=== PATIENT | female | born 1940 | race Caucasian/White ===

== ENCOUNTER 2019-07-20 16:10 | Inpatient (IN) | payer MEDICARE ==
--- NOTE | 2019-07-20 16:32 | ER Document Report ---
ED Medical Screen (RME) - General Chief Complaint: Cough Stated Complaint: SHORT OF BREATH, COUGH Time Seen by Provider: 07/20/19 16:26 Primary Care Provider: MARIZA MOHAMUD MD [Primary Care Provider] - Follow up as needed Mode of Arrival: Wheelchair Information source: Patient Notes: 78-year-old female presents to ED for complaint of shortness of breath cough congestion. She was sent over by the primary doctor with possible pneumonia. She does have a history of bronchitis in the winter but has never had COPD or asthma. She has had a history of pneumonia in the past. She states she thinks she was having a fever last night off and on. O2 sat was 87% on room air. She is now on 3 L and satting at 91-92% pulse is at 109-120. Blood pressure is 162/72. Lungs very coarse with rales rhonchi throughout I have greeted and performed a rapid initial assessment of this patient. A comprehensive ED assessment and evaluation of the patient, analysis of test results and completion of medical decision making process will be conducted by an additional ED providers. TRAVEL OUTSIDE OF THE [place] IN LAST 30 DAYS: No Physical Exam - Vital signs Vitals: Temp Pulse Resp BP Pulse Ox 98.2 F 124 H 36 H 129/106 H 87 L 07/20/19 16:19 07/20/19 16:19 07/20/19 16:19 07/20/19 16:19 07/20/19 16:19 Course - Vital Signs Vital signs: Temp Pulse Resp BP Pulse Ox 98.2 F 124 H 36 H 129/106 H 87 L 07/20/19 16:19 07/20/19 16:19 07/20/19 16:19 07/20/19 16:19 07/20/19 16:19 Doctor's Discharge - Discharge Referrals: MARIZA MOHAMUD MD [Primary Care Provider] - Follow up as needed
[2019-07-20] MEDS ORDERED: NORMAL SALINE 1000 ML 1,000 ML IV ONE (16:35)
--- NOTE | 2019-07-20 16:35 | ER Document Report ---
ED Medical Screen (RME) - General Chief Complaint: Cough Stated Complaint: SHORT OF BREATH, COUGH Time Seen by Provider: 07/20/19 16:26 Primary Care Provider: MARIZA MOHAMUD MD [Primary Care Provider] - Follow up as needed Mode of Arrival: Wheelchair Information source: Patient Notes: Patient is a former smoker quit couple years ago. Was treated for ovarian ca ncer 2 years ago she was diagnosed finished chemo in July a year ago TRAVEL OUTSIDE OF THE [place] IN LAST 30 DAYS: No Physical Exam - Vital signs Vitals: Temp Pulse Resp BP Pulse Ox 98.2 F 124 H 36 H 129/106 H 87 L 07/20/19 16:19 07/20/19 16:19 07/20/19 16:19 07/20/19 16:19 07/20/19 16:19 Course - Vital Signs Vital signs: Temp Pulse Resp BP Pulse Ox 98.2 F 124 H 36 H 129/106 H 87 L 07/20/19 16:19 07/20/19 16:19 07/20/19 16:19 07/20/19 16:19 07/20/19 16:19 Doctor's Discharge - Discharge Referrals: MARIZA MOHAMUD MD [Primary Care Provider] - Follow up as needed
--- NOTE | 2019-07-20 17:10 | RADIOLOGY REPORT (SQ) ---
EXAM DESCRIPTION: CHEST 2 VIEWS COMPLETED DATE/TIME: 07/20/2019 5:02 pm REASON FOR STUDY: cough congestion COMPARISON: None. EXAM PARAMETERS: NUMBER OF VIEWS: two views TECHNIQUE: Digital Frontal and Lateral radiographic views of the chest acquired. RADIATION DOSE: NA LIMITATIONS: none FINDINGS: LUNGS AND PLEURA: No opacities, masses or pneumothorax. No pleural effusion. MEDIASTINUM AND HILAR STRUCTURES: No masses or contour abnormalities. HEART AND VASCULAR STRUCTURES: Heart normal size. No evidence for failure. BONES: No acute findings. Degenerative changes in the spine. HARDWARE: None in the chest. Hardware in the right shoulder. OTHER: No other significant finding. IMPRESSION: NO ACUTE RADIOGRAPHIC FINDING IN THE CHEST. TECHNICAL DOCUMENTATION: JOB ID: [id number] [employer]- All Rights Reserved Reading location - IP/workstation name: [email or web address]
[2019-07-20 17:28] LABS: VENOUS BLOOD HCO3 24.7 mmol/L (20-32); VENOUS BLOOD PCO2 49.5 mmHg (35-63); VENOUS BLOOD PH 7.32 (7.30-7.42)
[2019-07-20 17:33] LABS: ABSOLUTE BASOPHILS # (AUTO) 0.1 10^3/uL (0.0-0.2); ABSOLUTE LYMPHOCYTES (AUTO) 1.7 10^3/uL (0.5-4.7); ABSOLUTE MONOCYTES (AUTO) 1.3 10^3/uL (0.1-1.4); ABSOLUTE NEUT (AUTO) 10.9 10^3/uL (1.7-8.2); BASOPHILS % (AUTO) 0.4 % (0-2); EOSINOPHILS % (AUTO) 0.2 % (0-6); HEMATOCRIT 42.1 % (36.0-47.0); HEMOGLOBIN 14.6 g/dL (12.0-15.5); LYMPHOCYTES % (AUTO) 12.5 % (13-45); MEAN CORPUSCULAR HEMOGLOBIN 33.2 pg (27.0-33.4); MEAN CORPUSCULAR HGB CONC 34.6 g/dL (32.0-36.0); MEAN CORPUSCULAR VOLUME 96 fl (80-97); PLATELET COUNT 198 10^3/uL (150-450); RED BLOOD COUNT 4.39 10^6/uL (3.72-5.28); RED CELL DISTRIBUTION WIDTH 14.3 % (11.5-14.0); SEGMENTED NEUTROPHILS % (AUTO) 77.9 % (42-78); TOTAL CELLS COUNTED % (AUTO) 100 %
[2019-07-20 17:38] LABS: INTERNATIONAL RATION (INR) 1.04; PROTHROMBIN TIME 13.6 SEC (11.4-15.4)
[2019-07-20 17:49] LABS: ALBUMIN 4.5 g/dL (3.5-5.0); ALKALINE PHOSPHATASE 94 U/L (38-126); ANION GAP 12 (5-19); ASPARTATE AMINO TRANSFERASE 39 U/L (14-36); BILIRUBIN,DIRECT 0.2 mg/dL (0.0-0.4); BILIRUBIN,TOTAL 0.8 mg/dL (0.2-1.3); BLOOD UREA NITROGEN 29 mg/dL (7-20); CALCIUM 9.9 mg/dL (8.4-10.2); CARBON DIOXIDE 27 mmol/L (22-30); CHLORIDE 97 mmol/L (98-107); GLUCOSE 127 mg/dL (75-110); POTASSIUM 5.1 mmol/L (3.6-5.0); TOTAL PROTEIN 8.2 g/dL (6.3-8.2)
[2019-07-20 19:20] LABS: NT PRO BNP 444 pg/mL (<450)
[2019-07-20 19:23] LABS: TROPONIN I < 0.012 ng/mL
--- NOTE | 2019-07-20 19:44 | RADIOLOGY REPORT (SQ) ---
EXAM DESCRIPTION: CTA CHEST COMPLETED DATE/TIME: 07/20/2019 7:29 pm REASON FOR STUDY: cancer/dyspnea COMPARISON: None. TECHNIQUE: CT scan of the chest performed using helical scanning technique with dynamic intravenous contrast injection. Images reviewed with lung, soft tissue and bone windows. Reconstructed coronal and sagittal MPR images reviewed. Additional 3 dimensional post-processing performed to develop Maximal Intensity Projection images (PR P). All images stored on PACS. All CT scanners at this facility use dose modulation, iterative reconstruction, and/or weight based d osing when appropriate to reduce radiation dose to as low as reasonably achievable (ALARA). [facility]: Dose Right [facility]: CareDose [facility]: Dose Right [facility]: Teradose 4D [facility]: BioMax CONTRAST TYPE AND DOSE: contrast/concentration: Isovue 300.00 mg/ml; Total Contrast Delivered: 70.0 ml; Total Saline Delivered: 80.0 ml Contrast bolus adequate for pulmonary arteries and aorta. RENAL FUNCTION: BUN 29 creatinine 1.89 RADIATION DOSE: CT Rad equipment meets quality standard of care and radiation dose reduction techniq ues were employed. CTDIvol: 6.6 - 16.6 mGy. DLP: 630 mGy-cm. . LIMITATIONS: Mild pulsation artifact. FINDINGS: LUNGS AND PLEURA: No masses, infiltrates, or pneumothorax. No pleural effusions or pleura l calcifications. AORTA AND GREAT VESSELS: No aneurysm. No dissection. HEART: No pericardial effusion. No significant coronary artery calcifications. PULMONARY ARTERIES: No emboli visualized in the main pulmonary arteries or the segmental branches. HILAR AND MEDIASTINAL STRUCTURES: There are numerous small nonspecific mediastinal nodes. HARDWARE: None in the chest. UPPER ABDOMEN: Hypoattenuation of the liver. THYROID AND OTHER SOFT TISSUES: No masses. No adenopathy. BONES: No acute or significant finding. 3D MIPS: Confirm above findings. OTHER: No other significant finding. IMPRESSION: 1. There is no pulmonary embolus. There is no aortic aneurysm or dissection. 2. Hepatic steatosis. COMMENT: Quality ID # [id number]: Final reports with documentation of one or more dose reduction techniques (e.g., Automated exposure control, adjustment of the mA and/or kV according to patient size, use of iterative reconstruction technique) TECHNICAL DOCUMENTATION: JOB ID: [id number] [employer]- All Rights Reserved Reading location - IP/workstation name: [email or web address]
--- NOTE | 2019-07-20 20:02 | ER Document Report ---
ED General - General Chief Complaint: Shortness Of Breath Stated Complaint: SHORT OF BREATH, COUGH Time Seen by Provider: 07/20/19 16:26 Primary Care Provider: MARIZA MOHAMUD MD [ACTIVE STAFF] - Follow up as needed Mode of Arrival: Wheelchair Information source: Patient TRAVEL OUTSIDE OF THE [place] IN LAST 30 DAYS: No - HPI Notes: Patient presents with shortness of breath. She states is been gradually getting worse over the last week. She states that she went to her primary care doctor's office today and they referred her to the emergency department. She has been using her inhaler that she uses as needed but with no relief. She states she does have COPD. She was a smoker up until about 2 years ago. She also states that she underwent chemotherapy for ovarian cancer and that this has caused her to have a poor immune system. She states her last dose of chemo was approximate 1 year ago. She states she has had a dry cough essentially. With some generalized body aches. The body aches are mild to moderate. They are constant. They are worse with movement and better with rest. Her shortness of breath is also worse with exertion. There is no radiation of the symptoms. No vomiting or diarrhea. No fevers or rashes. She has no history of congestive heart failure. - Related Data Allergies/Adverse Reactions: glycopeptides ('-mycins') Allergy (Uncoded 07/20/19 19:01) Past Medical History - General Information source: Patient - Social History Smoking Status: Former Smoker Frequency of alcohol use: None Drug Abuse: None Family History: Reviewed & Not Pertinent Patient has suicidal ideation: No Patient has homicidal ideation: No - Past Medical History Cardiac Medical History: Reports: Hx Hypertension Past Surgical History: Reports: Hx Hysterectomy, Hx Kidney (Renal Surgery) - removal, Hx Orthopedic Surgery - rt rotator cuff, lt ankle Review of Systems - Review of Systems Constitutional: Chills, Malaise, Weakness Respiratory: Cough, Short of breath Gastrointestinal: denies: Diarrhea, Vomiting -: Yes All other systems reviewed and negative Physical Exam - Vital signs Vitals: Temp Pulse Resp BP Pulse Ox 98.2 F 124 H 36 H 129/106 H 87 L 07/20/19 16:19 07/20/19 16:19 07/20/19 16:19 07/20/19 16:19 07/20/19 16:19 Interpretation: Hypertensive, Tachycardic, Tachypneic - General General appearance: Alert In distress: Mild - Respiratory - HEENT Head: Normocephalic, Atraumatic Eyes: Normal Pupils: PERRL - Respiratory Respiratory status: Tachypnea, Other - Mild respiratory distress with tachypnea Chest status: Nontender Breath sounds: Rhonchi - Rhonchi diffuse Chest palpation: Normal - Cardiovascular Rhythm: Tachycardia Heart sounds: Normal auscultation Murmur: No - Abdominal Inspection: Normal Distension: No distension Bowel sounds: Normal Tenderness: Nontender Organomegaly: No organomegaly - Back Back: Normal, Nontender - Extremities General upper extremity: Normal inspection, Nontender, Normal color, Normal ROM, Normal temperature General lower extremity: Normal inspection, Nontender, Normal color, Normal ROM, Normal temperature, Normal weight bearing. No: Fabian's sign - Neurological Neuro grossly intact: Yes Cognition: Normal Orientation: AAOx4 Ailyn Coma Scale Eye Opening: Spontaneous [place] Coma Scale Verbal: Oriented Ailyn Coma Scale Motor: Obeys Commands Ailyn Coma Scale Total: 15 Speech: Normal Motor strength normal: LUE, RUE, LLE, RLE Sensory: Normal - Psychological Associated symptoms: Normal affect, Normal mood - Skin Skin Temperature: Warm Skin Moisture: Dry Skin Color: Normal Course - Re-evaluation Re-evalutation: 07/20/19 20:03 Patient presents with dyspnea on exertion. She has rhonchi in all kothari. She is tachypneic and tachycardic. She received several treatments before arrival they gave her some relief. I did not give the patient any more nebulized treatments here as she was tachycardic and tachypneic at baseline here in the emergency department. I will give the patient steroids and antibiotics. There is no evidence of pulmonary embolism or pneumonia. She seems to have an exace rbation of her COPD. There is no evidence of heart failure. - Vital Signs Vital signs: Temp Pulse Resp BP Pulse Ox 98.2 F 124 H 29 H 185/104 H 92 07/20/19 16:19 07/20/19 16:19 07/20/19 19:14 07/20/19 19:14 07/20/19 19:14 - Laboratory Result Diagrams: 07/20/19 17:17 07/20/19 17:17 Laboratory results interpreted by me: 07/20/19 07/20/19 07/20/19 17:17 17:17 17:46 WBC 14.0 H RDW 14.3 H Lymph % (Auto) 12.5 L Absolute Neuts (auto) 10.9 H Sodium 136.1 L Potassium 5.1 H Chloride 97 L BUN 29 H Creatinine 1.89 H Est GFR ( Amer) 31 L Est GFR (MDRD) Non-Af 26 L Glucose 127 H POC Glucose 116 H AST 39 H - Diagnostic Test Radiology reviewed: Image reviewed, Reports reviewed - EKG Interpretation by Me EKG shows normal: Sinus rhythm Rate: Tachycardia - 116 Rhythm: NSR Wana/QRS: No: Right axis deviation, Left axis deviation Discharge - Discharge Clinical Impression: COPD with acute exacerbation Condition: Stable Disposition: ADMITTED INPATIENT Admitting Provider: Alonzo (Hospitalist) Unit Admitted: Telemetry
[2019-07-20] MEDS ORDERED: AZITHROMYCIN 250 MG TABLET PO ONE (20:07)
[2019-07-20] MEDS ORDERED: CEFTRIAXONE 2 GM/D5W RTU 2 GM/50 ML RTUPB IV ONE (20:07)
[2019-07-20] MEDS ORDERED: METHYLPREDNISOLONE INJ 125 MG/2 ML SDV IV ONE (20:07)
[2019-07-20] MEDS ORDERED: IPRATROPIUM/ALBUTEROL 0.5-2.5 MG/3 ML AMPUL NEB PRN (20:07)
[2019-07-20 20:39] LABS: APPEARANCE,URINE CLOUDY; BILIRUBIN,URINE NEGATIVE (NEGATIVE); COLOR,URINE YELLOW; GLUCOSE, URINE NEGATIVE (NEGATIVE); KETONES,URINE NEGATIVE (NEGATIVE); PROTEIN,URINE 30 mg/dL (NEGATIVE); URINE SPECIFIC GRAVITY 1.026; UROBILINOGEN,URINE NEGATIVE mg/dL (<2.0)
[2019-07-20] MEDS: DILTIAZEM HCL 60 MG TABLET PO SCH (20:41)
[2019-07-20] MEDS ORDERED: AZITHROMYCIN 500 MG in DEXTROSE 5%-WATER 250 ML IV SCH (22:00)
[2019-07-20] MEDS: PREDNISONE 20 MG TABLET PO SCH (22:08)
[2019-07-20] MEDS: HEPARIN SOD (PORCINE) 5,000 UNIT/ML 1 ML VIAL SUBCUT SCH (22:13)
[2019-07-20] MEDS ORDERED: HYDRALAZINE HCL INJ/PF 20 MG/1 ML SDV IV PRN (22:16)
[2019-07-20] MEDS ORDERED: ALPRAZOLAM 0.5 MG TABLET PO ONE (22:45)
[2019-07-20] MEDS ORDERED: PREDNISONE 20 MG TABLET PO ONE (22:45)
[2019-07-20] MEDS ORDERED: METOPROLOL SUCCINATE 50 MG TAB.SR.24H PO ONE (22:45)
[2019-07-20] MEDS ORDERED: AZITHROMYCIN 500 MG in DEXTROSE 5%-WATER 250 ML IV ONE (23:00)
--- NOTE | 2019-07-20 23:46 | EKG REPORT ---
SEVERITY:- ABNORMAL ECG - SINUS TACHYCARDIA MULTIPLE ATRIAL PREMATURE COMPLEXES ABNORMAL T, CONSIDER ISCHEMIA, LATERAL LEADS : Confirmed by: Zachary Mansfield 20-Jul-2019 23:46:24
[2019-07-20] MEDS: CHLORPHENIRAMINE MALEATE 4 MG TABLET PO SCH (23:55)
[2019-07-21] MEDS: IPRATROPIUM/ALBUTEROL 0.5-2.5 MG/3 ML AMPUL NEB SCH ×3 (00:15→17:34)
[2019-07-21] MEDS ORDERED: NORMAL SALINE 1000 ML 1,000 ML IV PRN (04:30)
--- NOTE | 2019-07-21 04:32 | PDOC H&P ---
History of Present Illness Admission Date/PCP: 07/20/19 20:22 JOSE BANDA PA-C Patient complains of: Shortness of breath History of Present Illness: TREVOR ABBOTT is a 78 year old female with a remote past medical history of hypertension, COPD with chronic bronchitis, and ovarian cancer status post successful chemotherapy. She presents with approximately 1 week of rhinorrhea, sore throat, shortness of breath, nonproductive cough and wheeze. In the emergency room she has tachypnea, audible wheezing, tachypnea, hypoxia, leukocytosis, acute renal failure and a urinalysis suggestive of urinary tract infection. She is started on empiric antibiotics, albuterol Atrovent, Solu- Medrol and referred to the hospitalist for admission. Patient denies recent antibiotic use and is otherwise felt fairly well. Past Medical History Cardiac Medical History: Reports: Hypertension Pulmonary Medical History: Reports: Bronchitis, Chronic Obstructive Pulmonary Disease (COPD) Psychiatric Medical History: Reports: Tobacco Dependency Denies: Alcohol Dependency Past Surgical History Past Surgical History: Reports: Hysterectomy, Orthopedic Surgery - rt rotator cuff, lt ankle Social History Information Source: Patient Lives with: Family Smoking Status: Former Smoker Electronic Cigarette use?: No Number of Years Smokin Last Time Smoked: 07/20/2016 Frequency of Alcohol Use: Occasional Hx Recreational Drug Use: No Drugs: None Hx Prescription Drug Abuse: No - Advance Directive Resuscitation Status: Full Code Family History Family History: COPD, DM Parental Family History Reviewed: Yes Children Family History Reviewed: Yes Sibling(s) Family History Reviewed.: Yes Medication/Allergy Home Medications: Albuterol Sulfate [Proair HFA Inhalation Aerosol 8.5 gm MDI] 2 puff IH Q6HP PRN 07/20/19 Alprazolam [Xanax 0.5 mg Tablet] 0.5 mg PO Q12 07/20/19 Clonidine HCl [Catapres 0.1 mg Tablet] 0.1 mg PO QHS 07/20/19 Fexofenadine HCl [Darlene Allergy] 180 mg PO BID 07/20/19 Metoprolol Succinate [Toprol Xl 50 mg Tab.sr] 50 mg PO Q12 07/20/19 Oxybutynin Chloride [Ditropan 5 mg Tablet] 5 mg PO BID 07/20/19 Allergies/Adverse Reactions: glycopeptides ('-mycins') Allergy (Uncoded 07/20/19 19:01) Review of Systems Constitutional: ABSENT: chills, fever(s), headache(s), weight gain, weight loss Eyes: ABSENT: visual disturbances Ears: ABSENT: hearing changes Cardiovascular: ABSENT: chest pain, dyspnea on exertion, edema, orthropnea, palpitations Respiratory: PRESENT: as per HPI, cough, dyspnea. ABSENT: hemoptysis, sputum Gastrointestinal: PRESENT: bloating, constipation. ABSENT: abdominal pain, diarrhea, hematemesis, hematochezia, nausea, vomiting Genitourinary: ABSENT: dysuria, hematuria Musculoskeletal: ABSENT: joint swelling Integumentary: ABSENT: rash, wounds Neurological: ABSENT: abnormal gait, abnormal speech, confusion, dizziness, focal weakness, syncope Psychiatric: ABSENT: anxiety, depression, homidical ideation, suicidal ideation Endocrine: ABSENT: cold intolerance, heat intolerance, polydipsia, polyuria Hematologic/Lymphatic: ABSENT: easy bleeding, easy bruising Physical Exam Vital Signs: Temp Pulse Resp BP Pulse Ox 98.0 F 93 18 153/76 H 95 07/20/19 22:35 07/21/19 02:00 07/21/19 00:15 07/20/19 22:35 07/21/19 00:15 Intake & Output 07/19/19 07/20/19 07/21/19 11:59 11:59 11:59 Intake Total 1300 Balance 1300 Weight 80.286 kg General appearance: PRESENT: cooperative, mild distress, obese, well-developed, well-nourished Head exam: PRESENT: atraumatic, normocephalic Eye exam: PRESENT: conjunctiva pink, EOMI, PERRLA. ABSENT: scleral icterus Ear exam: PRESENT: normal external ear exam Mouth exam: PRESENT: moist, tongue midline Neck exam: ABSENT: carotid bruit, JVD, lymphadenopathy, thyromegaly Respiratory exam: PRESENT: accessory muscle use, crackles, decreased breath sounds, rales, rhonchi, symmetrical, tachypnea, wheezes Cardiovascular exam: PRESENT: RRR, tachycardia. ABSENT: diastolic murmur, rubs, systolic murmur Pulses: PRESENT: normal dorsalis pedis pul Vascular exam: PRESENT: normal capillary refill GI/Abdominal exam: PRESENT: normal bowel sounds, soft. ABSENT: distended, guarding, mass, organolmegaly, rebound, tenderness Rectal exam: PRESENT: deferred Extremities exam: PRESENT: full ROM. ABSENT: calf tenderness, clubbing, pedal edema Neurological exam: PRESENT: alert, awake, oriented to person, oriented to place, oriented to time, oriented to situation, CN II-XII grossly intact. ABSENT: motor sensory deficit Psychiatric exam: PRESENT: appropriate affect, normal mood. ABSENT: homicidal ideation, suicidal ideation Skin exam: PRESENT: dry, intact, warm. ABSENT: cyanosis, rash Results Laboratory Results: 07/20/19 17:17 07/20/19 17:17 07/20/19 07/20/19 07/20/19 17:17 17:17 17:17 WBC 14.0 H RBC 4.39 Hgb 14.6 Hct 42.1 MCV 96 MCH 33.2 MCHC 34.6 RDW 14.3 H Plt Count 198 Seg Neutrophils % 77.9 VBG pH 7.32 VBG pCO2 49.5 VBG HCO3 24.7 VBG Base Excess -2.0 Sodium 136.1 L Potassium 5.1 H Chloride 97 L Carbon Dioxide 27 Anion Gap 12 BUN 29 H Creatinine 1.89 H Est GFR ( Amer) 31 L Glucose 127 H Calcium 9.9 Total Bilirubin 0.8 AST 39 H Alkaline Phosphatase 94 Total Protein 8.2 Albumin 4.5 Urine Color Urine Appearance Urine pH Ur Specific [place] Urine Protein Urine Glucose (UA) Urine Ketones Urine Blood Urine RBC (Auto) 07/20/19 20:18 WBC RBC Hgb Hct MCV MCH MCHC RDW Plt Count Seg Neutrophils % VBG pH VBG pCO2 VBG HCO3 VBG Base Excess Sodium Potassium Chloride Carbon Dioxide Anion Gap BUN Creatinine Est GFR ( Amer) Glucose Calcium Total Bilirubin AST Alkaline Phosphatase Total Protein Albumin Urine Color YELLOW Urine Appearance CLOUDY Urine pH 5.0 Ur Specific [place] 1.026 Urine Protein 30 H Urine Glucose (UA) NEGATIVE Urine Ketones NEGATIVE Urine Blood SMALL H Urine RBC (Auto) 6 07/20/19 17:17 Troponin I < 0.012 NT-Pro-B Natriuret Pep 444 Impressions: Chest X-Ray 07/20/19 16:32 IMPRESSION: NO ACUTE RADIOGRAPHIC FINDING IN THE CHEST. Chest/Abdomen CTA 07/20/19 18:42 IMPRESSION: 1. There is no pulmonary embolus. There is no aortic aneurysm or dissection. 2. Hepatic steatosis. Assessment and Plan - Diagnosis (1) Pneumonia Is this a current diagnosis for this admission?: Yes Plan: Secondary to sinusitis, acute flare of chronic bronchitis, empiric antibiotics initiated, follow-up blood culture and CBC. (2) Sinusitis Is this a current diagnosis for this admission?: Yes Plan: Flonase and chlorpheniramine (3) COPD with acute exacerbation Is this a current diagnosis for this admission?: Yes Plan: Secondary to #1, prednisone, incentive spirometry, flutter valve, supplemental oxygen (4) UTI (urinary tract infection) Is this a current diagnosis for this admission?: Yes Plan: Empiric antibiotics initiated, follow-up urine culture and CBC (5) Acute renal failure Is this a current diagnosis for this admission?: Yes Plan: Somewhat prerenal, avoid nephrotoxic meds and doses, IV fluid challenge, follow- up chemistry - Time Time Spent with patient: 25-34 minutes - Inpatient Certification Medical Necessity: Need Close Monitoring Due to Risk of Patient Decompensation
[2019-07-21 05:28] LABS: ABSOLUTE LYMPHOCYTES (AUTO) 0.7 10^3/uL (0.5-4.7); ABSOLUTE MONOCYTES (AUTO) 0.2 10^3/uL (0.1-1.4); ABSOLUTE NEUT (AUTO) 9.8 10^3/uL (1.7-8.2); HEMATOCRIT 38.5 % (36.0-47.0); HEMOGLOBIN 13.1 g/dL (12.0-15.5); LYMPHOCYTES % (AUTO) 6.7 % (13-45); MEAN CORPUSCULAR HEMOGLOBIN 32.7 pg (27.0-33.4); MEAN CORPUSCULAR HGB CONC 34.1 g/dL (32.0-36.0); MEAN CORPUSCULAR VOLUME 96 fl (80-97); MONOCYTES % (AUTO) 1.7 % (3-13); PLATELET COUNT 171 10^3/uL (150-450); RED BLOOD COUNT 4.02 10^6/uL (3.72-5.28); RED CELL DISTRIBUTION WIDTH 14.1 % (11.5-14.0); SEGMENTED NEUTROPHILS % (AUTO) 91.6 % (42-78); TOTAL CELLS COUNTED % (AUTO) 100 %; WHITE BLOOD COUNT 10.7 10^3/uL (4.0-10.5)
[2019-07-21] MEDS: CHLORPHENIRAMINE MALEATE 4 MG TABLET PO SCH ×3 (05:38→17:50)
[2019-07-21] MEDS: DILTIAZEM HCL 60 MG TABLET PO SCH ×3 (05:38→17:50)
[2019-07-21] MEDS: HEPARIN SOD (PORCINE) 5,000 UNIT/ML 1 ML VIAL SUBCUT SCH ×3 (05:39→21:15)
[2019-07-21 05:47] LABS: ALBUMIN 3.7 g/dL (3.5-5.0); ALKALINE PHOSPHATASE 88 U/L (38-126); ANION GAP 12 (5-19); ASPARTATE AMINO TRANSFERASE 31 U/L (14-36); BILIRUBIN,DIRECT 0.2 mg/dL (0.0-0.4); BILIRUBIN,TOTAL 0.4 mg/dL (0.2-1.3); BLOOD UREA NITROGEN 24 mg/dL (7-20); CARBON DIOXIDE 22 mmol/L (22-30); CHLORIDE 101 mmol/L (98-107); GLUCOSE 219 mg/dL (75-110); POTASSIUM 4.5 mmol/L (3.6-5.0); TOTAL PROTEIN 6.6 g/dL (6.3-8.2)
[2019-07-21] MEDS: ALPRAZOLAM 0.5 MG TABLET PO SCH ×2 (11:01→21:17)
[2019-07-21] MEDS: METOPROLOL SUCCINATE 50 MG TAB.SR.24H PO SCH ×2 (11:01→21:17)
[2019-07-21] MEDS: PREDNISONE 20 MG TABLET PO SCH (11:02)
[2019-07-21] MEDS: FLUTICASONE NASAL SPRAY 50 MCG/SPRY 120 SPRAY/16 GM NASL SCH ×3 (11:02→21:15)
[2019-07-21] MEDS: GUAIFENESIN 600 MG TABLET.SA PO SCH ×2 (12:00→21:17)
--- NOTE | 2019-07-21 12:07 | RADIOLOGY REPORT (SQ) ---
EXAM DESCRIPTION: CHEST SINGLE VIEW COMPLETED DATE/TIME: 07/21/2019 11:52 am REASON FOR STUDY: worsened hypoxia, dyspnea COMPARISON: 07/20/2019 EXAM PARAMETERS: NUMBER OF VIEWS: One view. TECHNIQUE: Single frontal radiographic view of the chest acquired. RADIATION DOSE: NA LIMITATIONS: None. FINDINGS: LUNGS AND PLEURA: No opacities, masses or pneumothorax. No pleural effusion. MEDIASTINUM AND HILAR STRUCTURES: No masses. Contour normal. HEART AND VASCULAR STRUCTURES: Normal heart size. Aortic atherosclerosis. BONES: No acute findings. Surgical ankle no proximal right humerus. HARDWARE: None in the chest. OTHER: No other significant finding. IMPRESSION: NO ACUTE RADIOGRAPHIC FINDING IN THE CHEST. TECHNICAL DOCUMENTATION: JOB ID: [id number] [employer]- All Rights Reserved Reading location - IP/workstation name: [email or web address]
[2019-07-21] MEDS: METHYLPREDNISOLONE INJ 40 MG/1 ML SDV IV SCH ×2 (15:00→21:19)
--- NOTE | 2019-07-21 17:15 | PDOC PROGRESS REPORT ---
Subjective Progress Note for:: 07/21/19 Subjective:: TREVOR ABBOTT is a 78 year old female with a remote past medical history of hypertension, COPD with chronic bronchitis, and ovarian cancer status post successful chemotherapy admitted 07/20/2019 for pneumonia, COPD with acute exacerbation, and UTI. Patient was seen on morning rounds and again briefly this afternoon. She was found to be resting in bed comfortably on supplemental oxygen via nasal cannula at 4 L/min. She is not home O2 dependent. I did turn off her oxygen and monitor her SPO2; she did desaturate to the mid 80s. She continues to have shortness of breath while at rest, and a productive cough, audible wheezing and rhonchi. She does admit to feeling much better today. She denies fever, chills, chest pain, palpitations, orthopnea, abdominal pain, nausea vomiting or diarrhea. She has good appetite. She has no new questions or concerns. No concerns per nursing. Reason For Visit: PNEUMONIA Physical Exam Vital Signs: Temp Pulse Resp BP Pulse Ox 97.9 F 80 18 153/55 H 97 07/21/19 15:31 07/21/19 15:31 07/21/19 15:31 07/21/19 15:31 07/21/19 15:31 Intake & Output 07/20/19 07/21/19 07/22/19 06:59 06:59 06:59 Intake Total 1300 320 Balance 1300 320 Weight 80.286 kg General appearance: PRESENT: no acute distress, cooperative, well-developed, well-nourished - Overweight Head exam: PRESENT: atraumatic, normocephalic Eye exam: PRESENT: conjunctiva pink, EOMI, PERRLA. ABSENT: scleral icterus Ear exam: PRESENT: normal external ear exam Mouth exam: PRESENT: moist, tongue midline Neck exam: ABSENT: carotid bruit, JVD, lymphadenopathy, thyromegaly Respiratory exam: PRESENT: rhonchi, symmetrical, unlabored, wheezes, other - Supplemental oxygen via nasal cannula. ABSENT: rales Cardiovascular exam: PRESENT: RRR, +S1, +S2. ABSENT: diastolic murmur, rubs, systolic murmur Pulses: PRESENT: normal dorsalis pedis pul Vascular exam: PRESENT: normal capillary refill GI/Abdominal exam: PRESENT: normal bowel sounds, soft. ABSENT: distended, guarding, mass, organolmegaly, rebound, tenderness Rectal exam: PRESENT: deferred Extremities exam: PRESENT: full ROM. ABSENT: calf tenderness, clubbing, pedal edema Neurological exam: PRESENT: alert, awake, oriented to person, oriented to place, oriented to time, oriented to situation, CN II-XII grossly intact. ABSENT: motor sensory deficit Psychiatric exam: PRESENT: appropriate affect, normal mood. ABSENT: homicidal ideation, suicidal ideation Skin exam: PRESENT: dry, intact, warm. ABSENT: cyanosis, rash Results Laboratory Results: 07/21/19 04:53 07/21/19 04:53 07/20/19 07/20/19 07/20/19 17:17 17:17 17:17 WBC 14.0 H RBC 4.39 Hgb 14.6 Hct 42.1 MCV 96 MCH 33.2 MCHC 34.6 RDW 14.3 H Plt Count 198 Seg Neutrophils % 77.9 VBG pH 7.32 VBG pCO2 49.5 VBG HCO3 24.7 VBG Base Excess -2.0 Sodium 136.1 L Potassium 5.1 H Chloride 97 L Carbon Dioxide 27 Anion Gap 12 BUN 29 H Creatinine 1.89 H Est GFR ( Amer) 31 L Glucose 127 H Calcium 9.9 Total Bilirubin 0.8 AST 39 H Alkaline Phosphatase 94 Total Protein 8.2 Albumin 4.5 Urine Color Urine Appearance Urine pH Ur Specific [place] Urine Protein Urine Glucose (UA) Urine Ketones Urine Blood Urine RBC (Auto) 07/20/19 07/21/19 07/21/19 20:18 04:53 04:53 WBC 10.7 H RBC 4.02 Hgb 13.1 Hct 38.5 MCV 96 MCH 32.7 MCHC 34.1 RDW 14.1 H Plt Count 171 Seg Neutrophils % 91.6 H VBG pH VBG pCO2 VBG HCO3 VBG Base Excess Sodium 135.0 L Potassium 4.5 Chloride 101 Carbon Dioxide 22 Anion Gap 12 BUN 24 H Creatinine 1.35 H Est GFR ( Amer) 46 L Glucose 219 H Calcium 9.0 Total Bilirubin 0.4 AST 31 Alkaline Phosphatase 88 Total Protein 6.6 Albumin 3.7 Urine Color YELLOW Urine Appearance CLOUDY Urine pH 5.0 Ur Specific [place] 1.026 Urine Protein 30 H Urine Glucose (UA) NEGATIVE Urine Ketones NEGATIVE Urine Blood SMALL H Urine RBC (Auto) 6 07/20/19 17:17 Troponin I < 0.012 NT-Pro-B Natriuret Pep 444 Impressions: Chest/Abdomen CTA 07/20/19 18:42 IMPRESSION: 1. There is no pulmonary embolus. There is no aortic aneurysm or dissection. 2. Hepatic steatosis. Chest X-Ray 07/21/19 00:00 IMPRESSION: NO ACUTE RADIOGRAPHIC FINDING IN THE CHEST. Assessment and Plan - Diagnosis (1) COPD with acute exacerbation Is this a current diagnosis for this admission?: Yes Plan: Repeat chest x-ray today is negative for acute findings. Continue supplemental oxygen as needed to maintain saturations greater than 89%. Schedule and as needed nebulizer treatments IV Solu-Medrol. Mucinex twice daily. Encourage pulmonary toilet. (2) Acute renal failure Is this a current diagnosis for this admission?: Yes Plan: Significantly improved. Prerenal secondary to dehydration in setting of UTI and bronchitis. Creatinine has decreased to 1.35 from 1.89. Continue Gentle IV fluids. Avoid nephrotoxic medications. Daily chemistries. (3) Sinusitis Is this a current diagnosis for this admission?: Yes Plan: Flonase and chlorpheniramine (4) UTI (urinary tract infection) Is this a current diagnosis for this admission?: Yes Plan: Urinalysis is positive for UTI. Urine and blood cultures are pending. Continue IV Rocephin; day #2. Continue IV antibiotics. Notes. (5) Pneumonia Is this a current diagnosis for this admission?: Yes Plan: Ruled out. Repeat chest x-ray following hydration by IV fluids remains negative for acute findings. I do not believe that this patient has pneumonia infection; she remains afebrile with minimal elevation WBCs which can easily be attributed to her steroid therapy. I have discontinued azithromycin per patient's request. Continue management as above. - Time Time Spent with patient: 25-34 minutes Medications reviewed and adjusted accordingly: Yes Anticipated discharge: Home Within: within 72 hours
[2019-07-21] MEDS: CEFTRIAXONE 1 GM/D5W RTU 1 GM/50 ML RTUPB IV SCH (17:49)
[2019-07-21] MEDS: NORMAL SALINE 1000 ML 1,000 ML IV PRN (21:11)
[2019-07-21] MEDS ORDERED: AZITHROMYCIN 500 MG in DEXTROSE 5%-WATER 250 ML IV SCH (22:00)
[2019-07-22] MEDS: IPRATROPIUM/ALBUTEROL 0.5-2.5 MG/3 ML AMPUL NEB SCH ×3 (00:06→17:40)
[2019-07-22] MEDS: DILTIAZEM HCL 60 MG TABLET PO SCH ×4 (00:08→17:34)
[2019-07-22] MEDS: METHYLPREDNISOLONE INJ 40 MG/1 ML SDV IV SCH ×3 (05:22→21:28)
[2019-07-22] MEDS: HEPARIN SOD (PORCINE) 5,000 UNIT/ML 1 ML VIAL SUBCUT SCH ×3 (05:23→21:24)
[2019-07-22 05:27] LABS: HEMATOCRIT 37.2 % (36.0-47.0); HEMOGLOBIN 12.7 g/dL (12.0-15.5); MEAN CORPUSCULAR HEMOGLOBIN 32.8 pg (27.0-33.4); MEAN CORPUSCULAR HGB CONC 34.1 g/dL (32.0-36.0); MEAN CORPUSCULAR VOLUME 96 fl (80-97); PLATELET COUNT 172 10^3/uL (150-450); RED BLOOD COUNT 3.88 10^6/uL (3.72-5.28); WHITE BLOOD COUNT 14.2 10^3/uL (4.0-10.5)
[2019-07-22] MEDS: NORMAL SALINE 1000 ML 1,000 ML IV PRN (05:27)
[2019-07-22 05:46] LABS: ANION GAP 12 (5-19); BLOOD UREA NITROGEN 23 mg/dL (7-20); CALCIUM 8.7 mg/dL (8.4-10.2); CARBON DIOXIDE 19 mmol/L (22-30); CHLORIDE 109 mmol/L (98-107); GLUCOSE 203 mg/dL (75-110); POTASSIUM 4.4 mmol/L (3.6-5.0)
[2019-07-22] MEDS: METOPROLOL SUCCINATE 50 MG TAB.SR.24H PO SCH ×2 (10:09→21:28)
[2019-07-22] MEDS: ALPRAZOLAM 0.5 MG TABLET PO SCH ×2 (10:09→21:26)
[2019-07-22] MEDS: GUAIFENESIN 600 MG TABLET.SA PO SCH ×2 (10:11→21:26)
[2019-07-22] MEDS: FLUTICASONE NASAL SPRAY 50 MCG/SPRY 120 SPRAY/16 GM NASL SCH ×2 (10:11→21:26)
--- NOTE | 2019-07-22 12:15 | PDOC PROGRESS REPORT ---
Subjective Progress Note for:: 07/22/19 Subjective:: TREVOR ABBOTT is a 78 year old female with a remote past medical history of hypertension, COPD with chronic bronchitis, and ovarian cancer status post successful chemotherapy admitted 07/20/2019 for pneumonia, COPD with acute exacerbation, and UTI. 07/12/2019. No acute events overnight. Patient is very pleasant and cooperative with evaluation. Stating much improvement of her symptoms. Still dependent on oxygen. Denies any fever, chills, nausea, vomiting, diarrhea, constipation or any urinary symptoms. Gets winded with on exertion. Stable discharge home tomorrow. Patient anxious to leave hospital due to Thanksgiving. Reason For Visit: PNEUMONIA Physical Exam Vital Signs: Temp Pulse Resp BP Pulse Ox 98.0 F 84 18 151/65 H 96 07/22/19 07:42 07/22/19 08:20 07/22/19 08:20 07/22/19 07:42 07/22/19 08:20 Intake & Output 07/21/19 07/22/19 07/23/19 06:59 06:59 06:59 Intake Total 1300 2610 Balance 1300 2610 Weight 80.286 kg General appearance: PRESENT: no acute distress, well-developed, well-nourished Head exam: PRESENT: atraumatic, normocephalic Respiratory exam: PRESENT: clear to auscultation lex, wheezes. ABSENT: rales, rhonchi Cardiovascular exam: PRESENT: RRR. ABSENT: diastolic murmur, rubs, systolic murmur GI/Abdominal exam: PRESENT: normal bowel sounds, soft. ABSENT: distended, g uarding, mass, organolmegaly, rebound, tenderness Neurological exam: PRESENT: alert, awake, oriented to person, oriented to place, oriented to time, oriented to situation, CN II-XII grossly intact. ABSENT: motor sensory deficit Results Laboratory Results: 07/22/19 05:05 07/22/19 05:05 07/22/19 07/22/19 05:05 05:05 WBC 14.2 H RBC 3.88 Hgb 12.7 Hct 37.2 MCV 96 MCH 32.8 MCHC 34.1 RDW 14.0 Plt Count 172 Sodium 140.3 Potassium 4.4 Chloride 109 H Carbon Dioxide 19 L Anion Gap 12 BUN 23 H Creatinine 1.07 Est GFR ( Amer) > 60 Glucose 203 H Calcium 8.7 07/20/19 17:17 Troponin I < 0.012 NT-Pro-B Natriuret Pep 444 Impressions: Chest/Abdomen CTA 07/20/19 18:42 IMPRESSION: 1. There is no pulmonary embolus. There is no aortic aneurysm or dissection. 2. Hepatic steatosis. Chest X-Ray 07/21/19 00:00 IMPRESSION: NO ACUTE RADIOGRAPHIC FINDING IN THE CHEST. Assessment and Plan - Diagnosis (1) Acute respiratory failure with hypoxia Is this a current diagnosis for this admission?: Yes Plan: Improving. Most likely due to underlying acute COPD exacerbation. Former smoker. Quit 3 years ago. Improving. SPO2 WNL on 2 L. Not on home O2. Troponins negative. BNP WNL. Continue duo nebs, incentive spirometry, flutter valve, PRN BiPAP, IV steroids, empiric IV antibiotics. Patient has history of ovarian cancer status post chemotherapy with paclitaxel and carboplatin. Has been followed by her [employer] reactor operator head Dr. Matos as outpatient. Has had recent 2D echo and patient reporting normal ejection fraction. Denies any history of CAD. (2) Ovarian cancer Qualifiers: Laterality: unspecified laterality Qualified Code(s): C56.9 - Malignant neoplasm of unspecified ovary Is this a current diagnosis for this admission?: Yes Plan: Patient has history of ovarian cancer status post chemotherapy with paclitaxel and carboplatin. Has been followed by her [employer] reactor operator head Dr. Matos as outpatient. Has had recent 2D echo and patient reporting normal ejection fraction. Denies any history of CAD. Outpatient oncology follow-up. (3) Acute renal failure Is this a current diagnosis for this admission?: Yes Plan: Resolved. Creatinine WNL. Electrolytes WNL. Prerenal secondary to dehydration in setting of UTI and bronchitis. Monitor volume status and electrodes. Replace as needed. Avoid nephrotoxic meds. Daily BMP. (4) COPD with acute exacerbation Is this a current diagnosis for this admission?: Yes Plan: Plan as per #1. Evaluate for home O2 requirement. (5) Pneumonia Is this a current diagnosis for this admission?: Yes Plan: Based on his initial presentation. Repeat chest x-ray remains negative for acute findings. Afebrile. SPO2 WNL on 2 L. Mild elevation of WBC most likely due to steroids. Day 3 IV antibiotics. Day 3 IV ceftriaxone. Received 2 days of azithromycin. (6) Sinusitis Is this a current diagnosis for this admission?: Yes Plan: Flonase and chlorpheniramine (7) UTI (urinary tract infection) Is this a current diagnosis for this admission?: Yes Plan: Urinalysis is positive for UTI. Urine and blood cultures are pending. Continue IV Rocephin; day #3.
[2019-07-22] MEDS: SALMETEROL XINAFOATE DISKUS 50 MCG/1 DOSE 28 DOSE IH SCH ×2 (13:59→21:27)
[2019-07-22] MEDS: CEFTRIAXONE 1 GM/D5W RTU 1 GM/50 ML RTUPB IV SCH (17:34)
[2019-07-22] MEDS ORDERED: CLONIDINE HCL 0.1 MG TABLET PO SCH (22:00)
[2019-07-23] MEDS: DILTIAZEM HCL 60 MG TABLET PO SCH ×4 (00:17→18:25)
[2019-07-23] MEDS: IPRATROPIUM/ALBUTEROL 0.5-2.5 MG/3 ML AMPUL NEB SCH ×2 (00:26→08:34)
[2019-07-23] MEDS: HEPARIN SOD (PORCINE) 5,000 UNIT/ML 1 ML VIAL SUBCUT SCH ×3 (05:10→21:51)
[2019-07-23] MEDS: METHYLPREDNISOLONE INJ 40 MG/1 ML SDV IV SCH ×3 (05:10→21:40)
[2019-07-23 07:39] LABS: ABSOLUTE LYMPHOCYTES (AUTO) 1.1 10^3/uL (0.5-4.7); ABSOLUTE MONOCYTES (AUTO) 0.4 10^3/uL (0.1-1.4); ABSOLUTE NEUT (AUTO) 13.5 10^3/uL (1.7-8.2); BASOPHILS % (AUTO) 0.1 % (0-2); HEMATOCRIT 37.2 % (36.0-47.0); HEMOGLOBIN 12.6 g/dL (12.0-15.5); MEAN CORPUSCULAR HEMOGLOBIN 32.5 pg (27.0-33.4); MEAN CORPUSCULAR HGB CONC 33.9 g/dL (32.0-36.0); MEAN CORPUSCULAR VOLUME 96 fl (80-97); PLATELET COUNT 203 10^3/uL (150-450); RED BLOOD COUNT 3.87 10^6/uL (3.72-5.28); RED CELL DISTRIBUTION WIDTH 14.5 % (11.5-14.0); SEGMENTED NEUTROPHILS % (AUTO) 89.9 % (42-78); TOTAL CELLS COUNTED % (AUTO) 100 %
[2019-07-23 08:11] LABS: ALBUMIN 3.4 g/dL (3.5-5.0); ALKALINE PHOSPHATASE 89 U/L (38-126); ANION GAP 7 (5-19); ASPARTATE AMINO TRANSFERASE 36 U/L (14-36); BILIRUBIN,DIRECT 0.2 mg/dL (0.0-0.4); BILIRUBIN,TOTAL 0.3 mg/dL (0.2-1.3); BLOOD UREA NITROGEN 24 mg/dL (7-20); CARBON DIOXIDE 24 mmol/L (22-30); CHLORIDE 109 mmol/L (98-107); GLUCOSE 166 mg/dL (75-110); POTASSIUM 4.5 mmol/L (3.6-5.0); TOTAL PROTEIN 6.3 g/dL (6.3-8.2)
[2019-07-23] MEDS: ALPRAZOLAM 0.5 MG TABLET PO SCH ×2 (10:42→21:49)
[2019-07-23] MEDS: METOPROLOL SUCCINATE 50 MG TAB.SR.24H PO SCH ×2 (10:42→21:49)
[2019-07-23] MEDS: GUAIFENESIN 600 MG TABLET.SA PO SCH ×2 (10:43→21:49)
[2019-07-23] MEDS: UMECLIDINIUM BROMIDE 62.5 MCG/DOSE IH SCH (10:44)
[2019-07-23] MEDS: SALMETEROL XINAFOATE DISKUS 50 MCG/1 DOSE 28 DOSE IH SCH ×2 (10:44→21:49)
[2019-07-23] MEDS ORDERED: LEVOFLOXACIN 750 MG/D5W RTU 750 MG/150 ML RTUPB IV SCH (12:00)
--- NOTE | 2019-07-23 12:54 | PDOC PROGRESS REPORT ---
Subjective Progress Note for:: 07/23/19 Subjective:: TREVOR ABBOTT is a 78 year old female with a remote past medical history of hypertension, COPD with chronic bronchitis, and ovarian cancer status post successful chemotherapy admitted 07/20/2019 for pneumonia, COPD with acute exacerbation, and UTI. 07/22/2019. No acute events overnight. Patient is very pleasant and cooperative with evaluation. Stating much improvement of her symptoms. Still dependent on oxygen. Denies any fever, chills, nausea, vomiting, diarrhea, constipation or any urinary symptoms. Gets winded with on exertion. Stable discharge home tomorrow. Patient anxious to leave hospital due to Thanksgiving. 07/23/2019. No acute events overnight. Still dependent on oxygen, significant wheezing on physical examination. Patient will need to be discharged on home O2. Reason For Visit: PNEUMONIA Physical Exam Vital Signs: Temp Pulse Resp BP Pulse Ox 98.0 F 85 18 187/85 H 95 07/23/19 08:00 07/23/19 08:35 07/23/19 08:35 07/23/19 08:00 07/23/19 08:35 Intake & Output 07/22/19 07/23/19 07/24/19 06:59 06:59 06:59 Intake Total 2610 2070 Balance 2610 2070 Weight 80.3 kg General appearance: PRESENT: mild distress, obese Respiratory exam: PRESENT: decreased breath sounds, prolonged expiratory phas, wheezes. ABSENT: rales, rhonchi Cardiovascular exam: PRESENT: RRR. ABSENT: diastolic murmur, rubs, systolic murmur GI/Abdominal exam: PRESENT: normal bowel sounds, soft. ABSENT: distended, guarding, mass, organolmegaly, rebound, tenderness Neurological exam: PRESENT: alert, awake, oriented to person, oriented to place, oriented to time, oriented to situation, CN II-XII grossly intact. ABSENT: motor sensory deficit Results Laboratory Results: 07/23/19 07:03 07/23/19 07:03 07/23/19 07/23/19 07:03 07:03 WBC 15.0 H RBC 3.87 Hgb 12.6 Hct 37.2 MCV 96 MCH 32.5 MCHC 33.9 RDW 14.5 H Plt Count 203 Seg Neutrophils % 89.9 H Sodium 140.1 Potassium 4.5 Chloride 109 H Carbon Dioxide 24 Anion Gap 7 BUN 24 H Creatinine 1.11 Est GFR ( Amer) 57 L Glucose 166 H Calcium 9.0 Magnesium 1.9 Total Bilirubin 0.3 AST 36 Alkaline Phosphatase 89 Total Protein 6.3 Albumin 3.4 L 07/20/19 20:18 Clean Catch Midstream Urine Culture - Final Escherichia Coli 07/20/19 17:17 Troponin I < 0.012 NT-Pro-B Natriuret Pep 444 Impressions: Chest/Abdomen CTA 07/20/19 18:42 IMPRESSION: 1. There is no pulmonary embolus. There is no aortic aneurysm or dissection. 2. Hepatic steatosis. Chest X-Ray 07/21/19 00:00 IMPRESSION: NO ACUTE RADIOGRAPHIC FINDING IN THE CHEST. Assessment and Plan - Diagnosis (1) Acute respiratory failure with hypoxia Is this a current diagnosis for this admission?: Yes Plan: Unchanged compared to yesterday. Still O2 dependent with significant wheezing. Most likely due to underlying acute COPD exacerbation. Former smoker. Quit 3 years ago. SPO2 WNL on 2 L. Not on home O2. Troponins negative. BNP WNL. Continue duo nebs, incentive spirometry, flutter valve, PRN BiPAP, IV steroids, empiric IV antibiotics. Will need home O2 upon discharge. Discharge planning consulted. Patient has history of ovarian cancer status post chemotherapy with paclitaxel and carboplatin. Has been followed by her fitness professional Dr. Matos as outpatient. Has had recent 2D echo and patient reporting normal ejection fraction. Denies any history of CAD. (2) Ovarian cancer Qualifiers: Laterality: unspecified laterality Qualified Code(s): C56.9 - Malignant neoplasm of unspecified ovary Is this a current diagnosis for this admission?: Yes Plan: Patient has history of ovarian cancer status post chemotherapy with paclitaxel and carboplatin. Has been followed by her fitness professional Dr. Matos as outpatient. Has had recent 2D echo and patient reporting normal ejection fraction. Denies any history of CAD. Outpatient oncology follow-up. (3) Acute renal failure Is this a current diagnosis for this admission?: Yes Plan: Resolved. Creatinine WNL. Electrolytes WNL. Prerenal secondary to dehydration in setting of UTI and bronchitis. Monitor volume status and electrodes. Replace as needed. Avoid nephrotoxic meds. Daily BMP. (4) COPD with acute exacerbation Is this a current diagnosis for this admission?: Yes Plan: Plan as per #1. Evaluate for home O2 requirement. (5) Pneumonia Is this a current diagnosis for this admission?: Yes Plan: Based on his initial presentation. Repeat chest x-ray remains negative for acute findings. Afebrile. SPO2 WNL on 2 L. Mild elevation of WBC most likely due to steroids. Day 4 IV antibiotics. Day 1 IV levofloxacin. Received 3 days of IV ceftriaxone. Received 2 days of azithromycin. (6) Sinusitis Is this a current diagnosis for this admission?: Yes Plan: Flonase and chlorpheniramine (7) UTI (urinary tract infection) Is this a current diagnosis for this admission?: Yes Plan: Urinalysis is positive for UTI. Urine and blood cultures are pending. Day for antibiotics.
[2019-07-23] MEDS: LEVALBUTEROL HCL NEB 1.25 MG/3 ML AMPUL NEB SCH ×2 (13:44→20:50)
[2019-07-23] MEDS: IPRATROPIUM BROMIDE 0.02% NEB 0.5 MG/2.5 ML AMPUL NEB SCH ×2 (13:44→20:50)
[2019-07-23] MEDS ORDERED: IPRATROPIUM/ALBUTEROL 0.5-2.5 MG/3 ML AMPUL NEB SCH (14:00)
[2019-07-23 16:39] LABS: ARTERIAL BLOOD BASE EXCESS -3.3 mmol/L; ARTERIAL BLOOD FIO2 3L; ARTERIAL BLOOD H2CO3 1.09 mmol/L (1.05-1.35); ARTERIAL BLOOD HCO3 21.2 mmol/L (20-24); ARTERIAL BLOOD O2 SATURATION 97.3 % (94-98); ARTERIAL BLOOD PCO2 36.3 mmHg (35-45); ARTERIAL BLOOD PH 7.38 (7.35-7.45); ARTERIAL BLOOD PO2 96.7 mmHg (80-100); ARTERIAL BLOOD TOTAL CO2 22.3 mmol/L (21-25)
[2019-07-23] MEDS ORDERED: AZITHROMYCIN INJ 500 MG VIAL IV PRN (17:32)
[2019-07-23] MEDS ORDERED: (PENDING PHARMACY ID) (Fexofenadine Hcl [Allegra Allergy] 180 MG) PO SCH (18:00)
[2019-07-23] MEDS: CEFTRIAXONE 1 GM/D5W RTU 1 GM/50 ML RTUPB IV SCH (18:24)
[2019-07-23] MEDS: OXYBUTYNIN CHLORIDE 5 MG TABLET PO SCH (18:25)
[2019-07-23] MEDS: LORATADINE 10 MG TABLET PO SCH (18:25)
[2019-07-23] MEDS: AZITHROMYCIN 500 MG in DEXTROSE 5%-WATER 250 ML IV SCH (21:36)
[2019-07-24] MEDS: DILTIAZEM HCL 60 MG TABLET PO SCH ×5 (00:50→23:03)
[2019-07-24] MEDS: METHYLPREDNISOLONE INJ 40 MG/1 ML SDV IV SCH ×3 (05:06→22:52)
[2019-07-24] MEDS: HEPARIN SOD (PORCINE) 5,000 UNIT/ML 1 ML VIAL SUBCUT SCH ×3 (05:06→22:53)
[2019-07-24 06:39] LABS: ARTERIAL BLOOD BASE EXCESS -4.8 mmol/L; ARTERIAL BLOOD FIO2 3.5L; ARTERIAL BLOOD H2CO3 1.04 mmol/L (1.05-1.35); ARTERIAL BLOOD HCO3 19.6 mmol/L (20-24); ARTERIAL BLOOD O2 SATURATION 97.4 % (94-98); ARTERIAL BLOOD PCO2 34.5 mmHg (35-45); ARTERIAL BLOOD PH 7.37 (7.35-7.45); ARTERIAL BLOOD PO2 99.3 mmHg (80-100); ARTERIAL BLOOD TOTAL CO2 20.6 mmol/L (21-25)
[2019-07-24 07:13] LABS: ALBUMIN 3.5 g/dL (3.5-5.0); ALKALINE PHOSPHATASE 108 U/L (38-126); ASPARTATE AMINO TRANSFERASE 37 U/L (14-36); BILIRUBIN,DIRECT 0.2 mg/dL (0.0-0.4); BILIRUBIN,TOTAL 0.2 mg/dL (0.2-1.3); BLOOD UREA NITROGEN 27 mg/dL (7-20); CALCIUM 9.1 mg/dL (8.4-10.2); CARBON DIOXIDE 21 mmol/L (22-30); CHLORIDE 106 mmol/L (98-107); GLUCOSE 307 mg/dL (75-110); POTASSIUM 3.9 mmol/L (3.6-5.0); TOTAL PROTEIN 6.2 g/dL (6.3-8.2)
[2019-07-24 07:14] LABS: ANION GAP 13 (5-19)
[2019-07-24 07:29] LABS: HEMATOCRIT 37.1 % (36.0-47.0); HEMOGLOBIN 12.7 g/dL (12.0-15.5); MEAN CORPUSCULAR HEMOGLOBIN 32.7 pg (27.0-33.4); MEAN CORPUSCULAR HGB CONC 34.1 g/dL (32.0-36.0); MEAN CORPUSCULAR VOLUME 96 fl (80-97); PLATELET COUNT 199 10^3/uL (150-450); RED BLOOD COUNT 3.88 10^6/uL (3.72-5.28); WHITE BLOOD COUNT 13.6 10^3/uL (4.0-10.5)
[2019-07-24 08:01] LABS: ABSOLUTE LYMPHOCYTES# (MANUAL) 0.8 10^3/uL (0.5-4.7); BAND NEUTROPHILS % (MANUAL) 5 % (3-5); BASOPHILS % (MANUAL) 0 % (0-2); EOSINOPHILS % (MANUAL) 0 % (0-6); LYMPHOCYTES % (MANUAL) 6 % (13-45); MONOCYTES % (MANUAL) 7 % (3-13); SEGMENTED NEUTROPHILS % (MAN) 82 % (42-78); TOTAL CELLS COUNTED 100
[2019-07-24 08:02] LABS: ANISOCYTOSIS SLIGHT; PLATELET COMMENT ADEQUATE
[2019-07-24] MEDS: IPRATROPIUM BROMIDE 0.02% NEB 0.5 MG/2.5 ML AMPUL NEB SCH ×3 (08:40→20:23)
[2019-07-24] MEDS: LEVALBUTEROL HCL NEB 1.25 MG/3 ML AMPUL NEB SCH ×3 (08:40→20:23)
[2019-07-24] MEDS ORDERED: CLONIDINE HCL 0.1 MG TABLET PO SCH (10:00)
[2019-07-24] MEDS: GUAIFENESIN 600 MG TABLET.SA PO SCH ×2 (10:04→22:53)
[2019-07-24] MEDS: LORATADINE 10 MG TABLET PO SCH ×2 (10:04→17:46)
[2019-07-24] MEDS: OXYBUTYNIN CHLORIDE 5 MG TABLET PO SCH ×2 (10:04→17:46)
[2019-07-24] MEDS: ALPRAZOLAM 0.5 MG TABLET PO SCH ×2 (10:05→22:53)
[2019-07-24] MEDS: SALMETEROL XINAFOATE DISKUS 50 MCG/1 DOSE 28 DOSE IH SCH ×2 (10:05→22:54)
[2019-07-24] MEDS: UMECLIDINIUM BROMIDE 62.5 MCG/DOSE IH SCH (10:05)
[2019-07-24] MEDS: METOPROLOL SUCCINATE 50 MG TAB.SR.24H PO SCH ×2 (10:05→22:54)
[2019-07-24] MEDS: FLUTICASONE NASAL SPRAY 50 MCG/SPRY 120 SPRAY/16 GM NASL SCH (10:22)
--- NOTE | 2019-07-24 14:32 | PDOC PROGRESS REPORT ---
Subjective Progress Note for:: 07/24/19 Subjective:: TREVOR ABBOTT is a 78 year old female with a remote past medical history of hypertension, COPD with chronic bronchitis, and ovarian cancer status post successful chemotherapy admitted 07/20/2019 for pneumonia, COPD with acute exacerbation, and UTI. 07/22/2019. No acute events overnight. Patient is very pleasant and cooperative with evaluation. Stating much improvement of her symptoms. Still dependent on oxygen. Denies any fever, chills, nausea, vomiting, diarrhea, constipation or any urinary symptoms. Gets winded with on exertion. Stable discharge home tomorrow. Patient anxious to leave hospital due to Thanksgiving. 07/23/2019. No acute events overnight. Still dependent on oxygen, significant wheezing on physical examination. Patient will need to be discharged on home O2. 07/24/2019. No significant changes compared to yesterday. Patient is still dependent on oxygen and has significant wheezing on physical examination. Reason For Visit: PNEUMONIA Physical Exam Vital Signs: Temp Pulse Resp BP Pulse Ox 97.8 F 84 18 147/49 H 92 07/24/19 08:00 07/24/19 08:42 07/24/19 08:42 07/24/19 08:00 07/24/19 12:27 Intake & Output 07/23/19 07/24/19 07/25/19 06:59 06:59 06:59 Intake Total 2070 920 250 Balance 2070 920 250 Weight 80.3 kg General appearance: PRESENT: mild distress Respiratory exam: PRESENT: accessory muscle use, prolonged expiratory phas, wheezes. ABSENT: rales, rhonchi Cardiovascular exam: PRESENT: RRR. ABSENT: diastolic murmur, rubs, systolic murmur GI/Abdominal exam: PRESENT: normal bowel sounds, soft. ABSENT: distended, guarding, mass, organolmegaly, rebound, tenderness Neurological exam: PRESENT: alert, awake, oriented to person, oriented to place, oriented to time, oriented to situation, CN II-XII grossly intact. ABSENT: motor sensory deficit Results Laboratory Results: 07/24/19 05:58 07/24/19 05:58 07/23/19 07/24/19 07/24/19 16:25 05:58 05:58 WBC 13.6 H RBC 3.88 Hgb 12.7 Hct 37.1 MCV 96 MCH 32.7 MCHC 34.1 RDW 14.0 Plt Count 199 Seg Neutrophils % Not Reportable Carbonic Acid 1.09 HCO3/H2CO3 Ratio 19:1 ABG pH 7.38 ABG pCO2 36.3 ABG pO2 96.7 ABG HCO3 21.2 ABG O2 Saturation 97.3 ABG Base Excess -3.3 FiO2 3L Sodium 139.7 Potassium 3.9 Chloride 106 Carbon Dioxide 21 L Anion Gap 13 BUN 27 H Creatinine 1.24 Est GFR ( Amer) 50 L Glucose 307 H Calcium 9.1 Magnesium 1.7 Total Bilirubin 0.2 AST 37 H Alkaline Phosphatase 108 Total Protein 6.2 L Albumin 3.5 07/24/19 06:12 WBC RBC Hgb Hct MCV MCH MCHC RDW Plt Count Seg Neutrophils % Carbonic Acid 1.04 L HCO3/H2CO3 Ratio 18:1 ABG pH 7.37 ABG pCO2 34.5 L ABG pO2 99.3 ABG HCO3 19.6 L ABG O2 Saturation 97.4 ABG Base Excess -4.8 FiO2 3.5L Sodium Potassium Chloride Carbon Dioxide Anion Gap BUN Creatinine Est GFR ( Amer) Glucose Calcium Magnesium Total Bilirubin AST Alkaline Phosphatase Total Protein Albumin 07/20/19 17:17 Troponin I < 0.012 NT-Pro-B Natriuret Pep 444 Impressions: Chest/Abdomen CTA 07/20/19 18:42 IMPRESSION: 1. There is no pulmonary embolus. There is no aortic aneurysm or dissection. 2. Hepatic steatosis. Chest X-Ray 07/21/19 00:00 IMPRESSION: NO ACUTE RADIOGRAPHIC FINDING IN THE CHEST. Assessment and Plan - Diagnosis (1) Acute respiratory failure with hypoxia Is this a current diagnosis for this admission?: Yes Plan: Unchanged compared to yesterday. Still O2 dependent with significant wheezing. Most likely due to underlying acute COPD exacerbation. Former smoker. Quit 3 years ago. SPO2 WNL on 2 L. Not on home O2. Troponins negative. BNP WNL. Continue duo nebs, incentive spirometry, flutter valve, PRN BiPAP, IV steroids, empiric IV antibiotics. Will need home O2 upon discharge. Discharge planning consulted. Patient has history of ovarian cancer status post chemotherapy with paclitaxel and carboplatin. Has been followed by her contact finger assembler Dr. Matos as outpatient. Has had recent 2D echo and patient reporting normal ejection fraction. Denies any history of CAD. (2) Pneumonia Is this a current diagnosis for this admission?: Yes Plan: Likely community-acquired pneumonia due to gram-positive including strep pneumo. Based on his initial presentation. Repeat chest x-ray remains negative for acute findings. Afebrile. SPO2 WNL on 2 L. Mild elevation of WBC most likely due to steroids. Day 5 IV antibiotics. Day 5 IV ceftriaxone. Day 4 IV azithromycin. Cultures negative so far. (3) Ovarian cancer Qualifiers: Laterality: unspecified laterality Qualified Code(s): C56.9 - Malignant neoplasm of unspecified ovary Is this a current diagnosis for this admission?: Yes Plan: Patient has history of ovarian cancer status post chemotherapy with paclitaxel and carboplatin. Has been followed by her contact finger assembler Dr. Matos as outpatient. Has had recent 2D echo and patient reporting normal ejection fraction. Denies any history of CAD. Outpatient oncology follow-up. (4) Acute renal failure Is this a current diagnosis for this admission?: Yes Plan: Resolved. Creatinine WNL. Electrolytes WNL. Prerenal secondary to dehydration in setting of UTI and bronchitis. Monitor volume status and electrodes. Replace as needed. Avoid nephrotoxic meds. Daily BMP. (5) COPD with acute exacerbation Is this a current diagnosis for this admission?: Yes Plan: Plan as per #1. Evaluate for home O2 requirement. (6) Sinusitis Is this a current diagnosis for this admission?: Yes Plan: Flonase and chlorpheniramine (7) UTI (urinary tract infection) Is this a current diagnosis for this admission?: Yes Plan: Urinalysis is positive for UTI. Urine and blood cultures are pending. Day 5 antibiotics.
[2019-07-24] MEDS: CEFTRIAXONE 1 GM/D5W RTU 1 GM/50 ML RTUPB IV SCH (17:46)
[2019-07-24] MEDS: AZITHROMYCIN 500 MG in DEXTROSE 5%-WATER 250 ML IV SCH (18:34)
[2019-07-24] MEDS: CLONIDINE HCL 0.1 MG TABLET PO SCH (22:53)
[2019-07-25] MEDS: DILTIAZEM HCL 60 MG TABLET PO SCH ×4 (05:38→23:44)
[2019-07-25] MEDS: METHYLPREDNISOLONE INJ 40 MG/1 ML SDV IV SCH ×2 (05:38→18:00)
[2019-07-25] MEDS: HEPARIN SOD (PORCINE) 5,000 UNIT/ML 1 ML VIAL SUBCUT SCH ×3 (05:39→22:00)
[2019-07-25 08:35] LABS: HEMATOCRIT 41.2 % (36.0-47.0); HEMOGLOBIN 13.8 g/dL (12.0-15.5); MEAN CORPUSCULAR HEMOGLOBIN 32.1 pg (27.0-33.4); MEAN CORPUSCULAR HGB CONC 33.5 g/dL (32.0-36.0); MEAN CORPUSCULAR VOLUME 96 fl (80-97); PLATELET COUNT 226 10^3/uL (150-450); RED CELL DISTRIBUTION WIDTH 13.9 % (11.5-14.0); WHITE BLOOD COUNT 17.2 10^3/uL (4.0-10.5)
[2019-07-25] MEDS: LEVALBUTEROL HCL NEB 1.25 MG/3 ML AMPUL NEB SCH ×3 (08:37→20:06)
[2019-07-25] MEDS: IPRATROPIUM BROMIDE 0.02% NEB 0.5 MG/2.5 ML AMPUL NEB SCH ×3 (08:37→20:06)
[2019-07-25 09:03] LABS: ABSOLUTE LYMPHOCYTES# (MANUAL) 1.5 10^3/uL (0.5-4.7); ABSOLUTE MONOCYTES # (MANUAL) 0.7 10^3/uL (0.1-1.4); BAND NEUTROPHILS % (MANUAL) 5 % (3-5); BASOPHILS % (MANUAL) 0 % (0-2); EOSINOPHILS % (MANUAL) 0 % (0-6); LYMPHOCYTES % (MANUAL) 9 % (13-45); METAMYELOCYTES % (MANUAL) 2 % (0-1); MONOCYTES % (MANUAL) 4 % (3-13); SEGMENTED NEUTROPHILS % (MAN) 80 % (42-78); SMUDGE CELLS PRESENT; TOTAL CELLS COUNTED 100; TOXIC VACUOLATION PRESENT
[2019-07-25 09:04] LABS: PLATELET COMMENT ADEQUATE
[2019-07-25] MEDS ORDERED: DEXTROSE 50%-WATER 25 GM/50 ML DISP.SYRIN IV PRN ×2 (10:38)
[2019-07-25] MEDS ORDERED: DEXTROSE 40% GEL 15 GM TUBE PO PRN ×2 (10:38)
[2019-07-25] MEDS ORDERED: GLUCAGON,HUMAN RECOMB 1 MG INJ IM PRN (10:38)
[2019-07-25] MEDS: OXYBUTYNIN CHLORIDE 5 MG TABLET PO SCH ×2 (11:14→18:10)
[2019-07-25] MEDS: UMECLIDINIUM BROMIDE 62.5 MCG/DOSE IH SCH (11:15)
[2019-07-25] MEDS: ALPRAZOLAM 0.5 MG TABLET PO SCH ×2 (11:15→22:01)
[2019-07-25] MEDS: SALMETEROL XINAFOATE DISKUS 50 MCG/1 DOSE 28 DOSE IH SCH ×2 (11:15→22:02)
[2019-07-25] MEDS: LORATADINE 10 MG TABLET PO SCH ×3 (11:16→18:10)
[2019-07-25] MEDS: GUAIFENESIN 600 MG TABLET.SA PO SCH ×2 (11:16→22:02)
[2019-07-25] MEDS: METOPROLOL SUCCINATE 50 MG TAB.SR.24H PO SCH ×2 (11:16→22:02)
[2019-07-25] MEDS: INSULIN LISPRO 100 UNIT/ML 3 ML VIAL SUBCUT SCH ×3 (11:37→22:00)
--- NOTE | 2019-07-25 13:29 | PDOC PROGRESS REPORT ---
Subjective Progress Note for:: 07/25/19 Subjective:: TREVOR ABBOTT is a 78 year old female with a remote past medical history of hypertension, COPD with chronic bronchitis, and ovarian cancer status post successful chemotherapy admitted 07/20/2019 for pneumonia, COPD with acute exacerbation, and UTI. 07/22/2019. No acute events overnight. Patient is very pleasant and cooperative with evaluation. Stating much improvement of her symptoms. Still dependent on oxygen. Denies any fever, chills, nausea, vomiting, diarrhea, constipation or any urinary symptoms. Gets winded with on exertion. Stable discharge home tomorrow. Patient anxious to leave hospital due to Thanksgiving. 07/23/2019. No acute events overnight. Still dependent on oxygen, significant wheezing on physical examination. Patient will need to be discharged on home O2. 07/24/2019. No significant changes compared to yesterday. Patient is still dependent on oxygen and has significant wheezing on physical examination. 07/25/2019. No acute events overnight. Patient consistently improving. Patient could be potentially home sent home however oxygen supplies are not ready. Reason For Visit: PNEUMONIA Physical Exam Vital Signs: Temp Pulse Resp BP Pulse Ox 97.6 F 85 23 H 134/51 H 98 07/25/19 09:08 07/25/19 09:08 07/25/19 09:08 07/25/19 09:08 07/25/19 09:08 Intake & Output 07/24/19 07/25/19 07/26/19 06:59 06:59 06:59 Intake Total 920 1056 Balance 920 1056 General appearance: PRESENT: no acute distress, well-developed, well-nourished Head exam: PRESENT: atraumatic, normocephalic Respiratory exam: PRESENT: clear to auscultation lex, decreased breath sounds, wheezes. ABSENT: rales, rhonchi Neurological exam: PRESENT: alert, awake, oriented to person, oriented to place, oriented to time, oriented to situation, CN II-XII grossly intact. ABSENT: motor sensory deficit Results Laboratory Results: 07/25/19 08:23 07/24/19 05:58 07/25/19 08:23 WBC 17.2 H RBC 4.30 Hgb 13.8 Hct 41.2 MCV 96 MCH 32.1 MCHC 33.5 RDW 13.9 Plt Count 226 Seg Neutrophils % Not Reportable 07/20/19 17:17 Troponin I < 0.012 NT-Pro-B Natriuret Pep 444 Impressions: Chest/Abdomen CTA 07/20/19 18:42 IMPRESSION: 1. There is no pulmonary embolus. There is no aortic aneurysm or dissection. 2. Hepatic steatosis. Chest X-Ray 07/21/19 00:00 IMPRESSION: NO ACUTE RADIOGRAPHIC FINDING IN THE CHEST. Assessment and Plan - Diagnosis (1) Acute respiratory failure with hypoxia Is this a current diagnosis for this admission?: Yes Plan: Improving. SPO2 WNL on 2 L NC. Minimal wheezing on physical examination. Most likely due to underlying acute COPD exacerbation complicated chemotherapy for underlying ovarian cancer. Former smoker. Quit 3 years ago. SPO2 WNL on 2 L. Not on home O2. Troponins negative. BNP WNL. Continue duo nebs, incentive spirometry, flutter valve, PRN BiPAP, IV steroids, empiric IV antibiotics. Will need home O2 upon discharge. Discharge planning consulted. Patient has history of ovarian cancer status post chemotherapy with paclitaxel and carboplatin. Has been followed by her embedded systems engineer Dr. Matos as outpatient. Has had recent 2D echo and patient reporting normal ejection fraction. Denies any history of CAD. (2) Pneumonia Is this a current diagnosis for this admission?: Yes Plan: Likely community-acquired pneumonia due to gram-positive including strep pneumo. Based on his initial presentation. Repeat chest x-ray remains negative for acute findings. Afebrile. SPO2 WNL on 2 L. Mild elevation of WBC most likely due to steroids. Day 6 IV antibiotics. Day 6 IV ceftriaxone. Day 5 IV azithromycin. Cultures negative so far. (3) Ovarian cancer Qualifiers: Laterality: unspecified laterality Qualified Code(s): C56.9 - Malignant neoplasm of unspecified ovary Is this a current diagnosis for this admission?: Yes Plan: Patient has history of ovarian cancer status post chemotherapy with paclitaxel and carboplatin. Has been followed by her embedded systems engineer Dr. Matos as outpatient. Has had recent 2D echo and patient reporting normal ejection fraction. Denies any history of CAD. Outpatient oncology follow-up. (4) Acute renal failure Is this a current diagnosis for this admission?: Yes Plan: Resolved. Creatinine WNL. Electrolytes WNL. Prerenal secondary to dehydration in setting of UTI and bronchitis. Monitor volume status and electrodes. Replace as needed. Avoid nephrotoxic meds. Daily BMP. (5) COPD with acute exacerbation Is this a current diagnosis for this admission?: Yes Plan: Plan as per #1. PT needs home O2. Pending oxygen arrangement. (6) Sinusitis Is this a current diagnosis for this admission?: Yes Plan: Resolved. (7) UTI (urinary tract infection) Is this a current diagnosis for this admission?: Yes Plan: Due to E. coli pansensitive. Received a complete course of antibiotics. Asymptomatic.
[2019-07-25] MEDS: CEFTRIAXONE 1 GM/D5W RTU 1 GM/50 ML RTUPB IV SCH (18:11)
[2019-07-25] MEDS: AZITHROMYCIN 500 MG in DEXTROSE 5%-WATER 250 ML IV SCH (19:50)
[2019-07-25] MEDS: CLONIDINE HCL 0.1 MG TABLET PO SCH (22:01)
[2019-07-26] MEDS: METHYLPREDNISOLONE INJ 40 MG/1 ML SDV IV SCH ×3 (02:58→17:31)
[2019-07-26] MEDS: HEPARIN SOD (PORCINE) 5,000 UNIT/ML 1 ML VIAL SUBCUT SCH ×3 (05:42→21:19)
[2019-07-26] MEDS: DILTIAZEM HCL 60 MG TABLET PO SCH ×2 (05:43→13:49)
[2019-07-26 06:37] LABS: HEMOGLOBIN 14.3 g/dL (12.0-15.5); MEAN CORPUSCULAR HEMOGLOBIN 32.5 pg (27.0-33.4); MEAN CORPUSCULAR VOLUME 96 fl (80-97); PLATELET COUNT 229 10^3/uL (150-450); RED BLOOD COUNT 4.39 10^6/uL (3.72-5.28); RED CELL DISTRIBUTION WIDTH 14.2 % (11.5-14.0); WHITE BLOOD COUNT 20.9 10^3/uL (4.0-10.5)
[2019-07-26 06:52] LABS: ALBUMIN 3.6 g/dL (3.5-5.0); ALKALINE PHOSPHATASE 90 U/L (38-126); ANION GAP 8 (5-19); ASPARTATE AMINO TRANSFERASE 23 U/L (14-36); BILIRUBIN,DIRECT 0.1 mg/dL (0.0-0.4); BILIRUBIN,TOTAL 0.4 mg/dL (0.2-1.3); BLOOD UREA NITROGEN 30 mg/dL (7-20); CALCIUM 9.6 mg/dL (8.4-10.2); CARBON DIOXIDE 29 mmol/L (22-30); CHLORIDE 102 mmol/L (98-107); GLUCOSE 146 mg/dL (75-110); POTASSIUM 4.4 mmol/L (3.6-5.0); TOTAL PROTEIN 6.4 g/dL (6.3-8.2)
[2019-07-26 07:25] LABS: ABSOLUTE LYMPHOCYTES# (MANUAL) 3.3 10^3/uL (0.5-4.7); ABSOLUTE MONOCYTES # (MANUAL) 0.2 10^3/uL (0.1-1.4); BAND NEUTROPHILS % (MANUAL) 3 % (3-5); BASOPHILS % (MANUAL) 0 % (0-2); EOSINOPHILS % (MANUAL) 0 % (0-6); LYMPHOCYTES % (MANUAL) 16 % (13-45); METAMYELOCYTES % (MANUAL) 2 % (0-1); MONOCYTES % (MANUAL) 1 % (3-13); SEGMENTED NEUTROPHILS % (MAN) 78 % (42-78); TOTAL CELLS COUNTED 100
[2019-07-26 07:26] LABS: ANISOCYTOSIS SLIGHT; PLATELET COMMENT ADEQUATE
[2019-07-26] MEDS: IPRATROPIUM BROMIDE 0.02% NEB 0.5 MG/2.5 ML AMPUL NEB SCH ×3 (08:12→19:59)
[2019-07-26] MEDS: LEVALBUTEROL HCL NEB 1.25 MG/3 ML AMPUL NEB SCH ×3 (08:13→19:59)
[2019-07-26] MEDS: LORATADINE 10 MG TABLET PO SCH ×2 (09:08→17:32)
[2019-07-26] MEDS: ALPRAZOLAM 0.5 MG TABLET PO SCH ×2 (09:09→21:23)
[2019-07-26] MEDS: GUAIFENESIN 600 MG TABLET.SA PO SCH ×2 (09:09→21:23)
[2019-07-26] MEDS: OXYBUTYNIN CHLORIDE 5 MG TABLET PO SCH ×2 (09:10→17:32)
[2019-07-26] MEDS: INSULIN LISPRO 100 UNIT/ML 3 ML VIAL SUBCUT SCH ×4 (09:11→21:23)
[2019-07-26] MEDS: METOPROLOL SUCCINATE 50 MG TAB.SR.24H PO SCH ×2 (09:11→21:23)
[2019-07-26] MEDS: UMECLIDINIUM BROMIDE 62.5 MCG/DOSE IH SCH (09:13)
[2019-07-26] MEDS: SALMETEROL XINAFOATE DISKUS 50 MCG/1 DOSE 28 DOSE IH SCH ×2 (09:14→21:24)
[2019-07-26] MEDS: PIPERACILLIN SODIUM/TAZOBACTAM 3.375 GM in NORMAL SALINE 100 ML IV SCH ×3 (13:51→23:48)
--- NOTE | 2019-07-26 16:13 | PDOC PROGRESS REPORT ---
Subjective Progress Note for:: 07/26/19 Subjective:: TREVOR ABBOTT is a 78 year old female with a remote past medical history of hypertension, COPD with chronic bronchitis, and ovarian cancer status post successful chemotherapy admitted 07/20/2019 for pneumonia, COPD with acute exacerbation, and UTI. 07/22/2019. No acute events overnight. Patient is very pleasant and cooperative with evaluation. Stating much improvement of her symptoms. Still dependent on oxygen. Denies any fever, chills, nausea, vomiting, diarrhea, constipation or any urinary symptoms. Gets winded with on exertion. Stable discharge home tomorrow. Patient anxious to leave hospital due to Thanksgiving. 07/23/2019. No acute events overnight. Still dependent on oxygen, significant wheezing on physical examination. Patient will need to be discharged on home O2. 07/24/2019. No significant changes compared to yesterday. Patient is still dependent on oxygen and has significant wheezing on physical examination. 07/25/2019. No acute events overnight. Patient consistently improving. Patient could be potentially home sent home however oxygen supplies are not ready. 07/26/2019. No acute events overnight. Patient comfortably sitting in recliner chair in no apparent distress. Stating that he she is feeling much better. Still dependent on oxygen. Waiting to be discharged home once oxygen supplies are ready. Reason For Visit: PNEUMONIA Physical Exam Vital Signs: Temp Pulse Resp BP Pulse Ox 97.5 F 81 16 154/70 H 93 07/26/19 07:25 07/26/19 14:10 07/26/19 14:10 07/26/19 07:25 07/26/19 14:10 Intake & Output 07/25/19 07/26/19 07/27/19 06:59 06:59 06:59 Intake Total 1056 1200 360 Balance 1056 1200 360 Weight 79.5 kg General appearance: PRESENT: no acute distress, obese, well-developed, well- nourished Respiratory exam: PRESENT: clear to auscultation lex, prolonged expiratory phas. ABSENT: rales, rhonchi, wheezes Cardiovascular exam: PRESENT: RRR. ABSENT: diastolic murmur, rubs, systolic murmur GI/Abdominal exam: PRESENT: normal bowel sounds, soft. ABSENT: distended, guarding, mass, organolmegaly, rebound, tenderness Extremities exam: PRESENT: full ROM. ABSENT: calf tenderness, clubbing, pedal edema Results Laboratory Results: 07/26/19 06:10 07/26/19 06:10 07/26/19 07/26/19 06:10 06:10 WBC 20.9 H RBC 4.39 Hgb 14.3 Hct 42.0 MCV 96 MCH 32.5 MCHC 34.0 RDW 14.2 H Plt Count 229 Seg Neutrophils % Not Reportable Sodium 138.7 Potassium 4.4 Chloride 102 Carbon Dioxide 29 Anion Gap 8 BUN 30 H Creatinine 1.17 Est GFR ( Amer) 54 L Glucose 146 H Calcium 9.6 Magnesium 2.0 Total Bilirubin 0.4 AST 23 Alkaline Phosphatase 90 Total Protein 6.4 Albumin 3.6 07/20/19 18:50 Blood Blood Culture - Final NO GROWTH IN 5 DAYS 07/20/19 17:17 Blood Blood Culture - Final NO GROWTH IN 5 DAYS 07/20/19 17:17 Troponin I < 0.012 NT-Pro-B Natriuret Pep 444 Impressions: Chest/Abdomen CTA 07/20/19 18:42 IMPRESSION: 1. There is no pulmonary embolus. There is no aortic aneurysm or dissection. 2. Hepatic steatosis. Chest X-Ray 07/21/19 00:00 IMPRESSION: NO ACUTE RADIOGRAPHIC FINDING IN THE CHEST. Assessment and Plan - Diagnosis (1) Acute respiratory failure with hypoxia Is this a current diagnosis for this admission?: Yes Plan: Moderate improvement. SPO2 WNL on 2 L NC. No wheezing. Prolonged expiratory phase. Most likely due to underlying acute COPD exacerbation complicated chemotherapy for underlying ovarian cancer. Former smoker. Quit 3 years ago. SPO2 WNL on 2 L. Not on home O2. Troponins negative. BNP WNL. Continue duo nebs, incentive spirometry, flutter valve, PRN BiPAP, IV steroids, empiric IV antibiotics. Will need home O2 upon discharge. Discharge planning consulted. Patient has history of ovarian cancer status post chemotherapy with paclitaxel and carboplatin. Has been followed by her routing equipment tender Dr. Matos as outpatient. Has had recent 2D echo and patient reporting normal ejection fraction. Denies any history of CAD. (2) Pneumonia Is this a current diagnosis for this admission?: Yes Plan: Likely community-acquired pneumonia due to gram-positive including strep pneumo. Based on his initial presentation. Repeat chest x-ray remains negative for acute findings. Afebrile. SPO2 WNL on 2 L. Mild elevation of WBC most likely due to steroids. Day 7 IV antibiotics. Received 6 days of IV ceftriaxone. Received 5 days of IV azithromycin. Day 1 IV Zosyn. Cultures negative so far. (3) Ovarian cancer Qualifiers: Laterality: unspecified laterality Qualified Code(s): C56.9 - Malignant neoplasm of unspecified ovary Is this a current diagnosis for this admission?: Yes Plan: Patient has history of ovarian cancer status post chemotherapy with paclitaxel and carboplatin. Has been followed by her routing equipment tender Dr. Matos as outpatient. Has had recent 2D echo and patient reporting normal ejection fraction. Denies any history of CAD. Outpatient oncology follow-up. (4) Acute renal failure Is this a current diagnosis for this admission?: Yes Plan: Resolved. Creatinine WNL. Electrolytes WNL. Prerenal secondary to dehydration in setting of UTI and bronchitis. Monitor volume status and electrodes. Replace as needed. Avoid nephrotoxic meds. Daily BMP. (5) COPD with acute exacerbation Is this a current diagnosis for this admission?: Yes Plan: Plan as per #1. PT needs home O2. Pending oxygen arrangement. (6) Sinusitis Is this a current diagnosis for this admission?: Yes Plan: Resolved. (7) UTI (urinary tract infection) Is this a current diagnosis for this admission?: Yes Plan: Due to E. coli pansensitive. Received a complete course of antibiotics. Asymptomatic. (8) Hyperglycemia, drug-induced Is this a current diagnosis for this admission?: Yes Plan: Patient denies any history of diabetes. This is most likely induced by high- dose steroids. Continue Accu-Chek, sliding scale insulin, hypoglycemic protocol.
[2019-07-26] MEDS ORDERED: LISINOPRIL 10 MG TABLET PO SCH (17:00)
[2019-07-26] MEDS: CLONIDINE HCL 0.1 MG TABLET PO SCH (21:23)
[2019-07-27] MEDS: METHYLPREDNISOLONE INJ 40 MG/1 ML SDV IV SCH (01:53)
[2019-07-27] MEDS: HEPARIN SOD (PORCINE) 5,000 UNIT/ML 1 ML VIAL SUBCUT SCH (05:03)
[2019-07-27 05:09] LABS: HEMATOCRIT 38.3 % (36.0-47.0); HEMOGLOBIN 13.2 g/dL (12.0-15.5); MEAN CORPUSCULAR HEMOGLOBIN 32.8 pg (27.0-33.4); MEAN CORPUSCULAR HGB CONC 34.4 g/dL (32.0-36.0); MEAN CORPUSCULAR VOLUME 95 fl (80-97); PLATELET COUNT 203 10^3/uL (150-450); RED BLOOD COUNT 4.02 10^6/uL (3.72-5.28); RED CELL DISTRIBUTION WIDTH 13.7 % (11.5-14.0); WHITE BLOOD COUNT 16.9 10^3/uL (4.0-10.5)
[2019-07-27] MEDS: PIPERACILLIN SODIUM/TAZOBACTAM 3.375 GM in NORMAL SALINE 100 ML IV SCH (05:27)
[2019-07-27 05:40] LABS: ABSOLUTE LYMPHOCYTES# (MANUAL) 2.7 10^3/uL (0.5-4.7); ABSOLUTE MONOCYTES # (MANUAL) 0.7 10^3/uL (0.1-1.4); BAND NEUTROPHILS % (MANUAL) 5 % (3-5); BASOPHILS % (MANUAL) 0 % (0-2); EOSINOPHILS % (MANUAL) 0 % (0-6); LYMPHOCYTES % (MANUAL) 16 % (13-45); MONOCYTES % (MANUAL) 4 % (3-13); SEGMENTED NEUTROPHILS % (MAN) 75 % (42-78); TOTAL CELLS COUNTED 100
[2019-07-27 05:41] LABS: ANISOCYTOSIS 1+; PLATELET COMMENT ADEQUATE; POLYCHROMASIA 1+
[2019-07-27] MEDS: IPRATROPIUM BROMIDE 0.02% NEB 0.5 MG/2.5 ML AMPUL NEB SCH (07:59)
[2019-07-27] MEDS: LEVALBUTEROL HCL NEB 1.25 MG/3 ML AMPUL NEB SCH (07:59)
[2019-07-27] MEDS: INSULIN LISPRO 100 UNIT/ML 3 ML VIAL SUBCUT SCH (08:21)
[2019-07-27] MEDS ORDERED: ALPRAZOLAM 0.5 MG TABLET PO PRN (08:23)
[2019-07-27] MEDS: UMECLIDINIUM BROMIDE 62.5 MCG/DOSE IH SCH (09:16)
[2019-07-27] MEDS: GUAIFENESIN 600 MG TABLET.SA PO SCH (09:16)
[2019-07-27] MEDS: SALMETEROL XINAFOATE DISKUS 50 MCG/1 DOSE 28 DOSE IH SCH (09:16)
[2019-07-27] MEDS: METOPROLOL SUCCINATE 50 MG TAB.SR.24H PO SCH (09:19)
[2019-07-27] MEDS ORDERED: CLONIDINE HCL 0.1 MG TABLET PO SCH (10:00)
[2019-07-27 10:36] VITALS: BP 153/57
--- NOTE | 2019-07-27 18:20 | PDOC DISCHARGE SUMMARY ---
Impression - Admit/DC Date/PCP Admission Date/Primary Care Provider: 07/20/19 20:22 JOSE BANDA PA-C Discharge Date: 07/27/19 - Discharge Diagnosis (1) Acute respiratory failure with hypoxia Is this a current diagnosis for this admission?: Yes (2) Pneumonia Is this a current diagnosis for this admission?: Yes (3) Ovarian cancer Is this a current diagnosis for this admission?: Yes (4) Acute renal failure Is this a current diagnosis for this admission?: Yes (5) COPD with acute exacerbation Is this a current diagnosis for this admission?: Yes (6) Sinusitis Is this a current diagnosis for this admission?: Yes (7) UTI (urinary tract infection) Is this a current diagnosis for this admission?: Yes (8) Hyperglycemia, drug-induced Is this a current diagnosis for this admission?: Yes - Additional Information Resuscitation Status: Full Code Discharge Diet: Regular Referrals: JOSE BANDA PA-C [Primary Care Provider] - 08/06/19 1:30 pm Prescriptions: Amox Tr/Potassium Clavulanate [Augmentin 875-125 mg Tablet] 1 tab PO BID 7 Days #14 tablet Clonidine HCl [Catapres 0.1 mg Tablet] 0.2 mg PO QHS 30 Days #30 tab Umeclidinium Culver [Incruse 62.5 Mcg Ellipta 7 Dose/Dpi] 1 inh IH DAILY 30 Days #1 inhaler Guaifenesin [Mucinex Sr 600 mg Tablet.sa] 600 mg PO Q12 6 Days #12 tablet.sa Prednisone 50 mg PO DAILY 5 Days #5 tablet Salmeterol Xinafoate [Serevent Diskus 50 Mcg/Dose 28 Dose/Diskus] 50 mcg IH Q12 30 Days #1 disk Home Medications: Albuterol Sulfate [Proair HFA Inhalation Aerosol 8.5 gm MDI] 2 puff IH Q6HP PRN 07/20/19 Alprazolam [Xanax 0.5 mg Tablet] 0.5 mg PO Q12 07/20/19 Fexofenadine HCl [Darlene Allergy] 180 mg PO BID 07/20/19 Metoprolol Succinate [Toprol Xl 50 mg Tab.sr] 50 mg PO Q12 07/20/19 Oxybutynin Chloride [Ditropan 5 mg Tablet] 5 mg PO BID 07/20/19 Amox Tr/Potassium Clavulanate [Augmentin 875-125 mg Tablet] 1 tab PO BID 7 Days #14 tablet 07/27/19 Clonidine HCl [Catapres 0.1 mg Tablet] 0.2 mg PO QHS 30 Days #30 tab 07/27/19 Guaifenesin [Mucinex Sr 600 mg Tablet.sa] 600 mg PO Q12 6 Days #12 tablet.sa 07/27/19 Prednisone 50 mg PO DAILY 5 Days #5 tablet 07/27/19 Salmeterol Xinafoate [Serevent Diskus 50 Mcg/Dose 28 Dose/Diskus] 50 mcg IH Q12 30 Days #1 disk 07/27/19 Umeclidinium Culver [Incruse 62.5 Mcg Ellipta 7 Dose/Dpi] 1 inh IH DAILY 30 Days #1 inhaler 07/27/19 History of Present Illiness History of Present Illness: TREVOR ABBOTT is a 78 year old female with a remote past medical history of hypertension, COPD with chronic bronchitis, and ovarian cancer status post successful chemotherapy admitted 07/20/2019 for pneumonia, COPD with acute exacerbation, and UTI. Hospital Course Hospital Course: - Diagnosis (1) Acute respiratory failure with hypoxia Is this a current diagnosis for this admission?: Yes Plan: Moderate improvement. SPO2 WNL on 2 L NC. No wheezing. Prolonged expiratory phase. Most likely due to underlying acute COPD exacerbation complicated chemotherapy for underlying ovarian cancer. Former smoker. Quit 3 years ago. SPO2 WNL on 2 L. Not on home O2. Troponins negative. BNP WNL. Continue duo nebs, incentive spirometry, flutter valve, PRN BiPAP, IV steroids, empiric IV antibiotics. Will need home O2 upon discharge. Discharge planning consulted. Patient has history of ovarian cancer status post chemotherapy with paclitaxel and carboplatin. Has been followed by her senior project accountant Dr. Matos as outpatient. Has had recent 2D echo and patient reporting normal ejection fraction. Denies any history of CAD. (2) Pneumonia Likely community-acquired pneumonia due to gram-positive including strep pneumo. Based on his initial presentation. Repeat chest x-ray remains negative for acute findings. Afebrile. SPO2 WNL on 2 L. Mild elevation of WBC most likely due to steroids. Day 7 IV antibiotics. Received 6 days of IV ceftriaxone. Received 5 days of IV azithromycin. Day 1 IV Zosyn. Cultures negative so far. (3) Ovarian cancer Patient has history of ovarian cancer status post chemotherapy with paclitaxel and carboplatin. Has been followed by her senior project accountant Dr. Matos as outpatient. Has had recent 2D echo and patient reporting normal ejection fraction. Denies any history of CAD. Outpatient oncology follow-up. (4) Acute renal failure Resolved. Creatinine WNL. Electrolytes WNL. Prerenal secondary to dehydration in setting of UTI and bronchitis. Monitor volume status and electrodes. Replace as needed. Avoid nephrotoxic meds. Daily BMP. (5) COPD with acute exacerbation Plan as per #1. PT needs home O2. Pending oxygen arrangement. (6) Sinusitis Resolved. (7) UTI (urinary tract infection) Due to E. coli pansensitive. Received a complete course of antibiotics. Asymptomatic. (8) Hyperglycemia, drug-induced Patient denies any history of diabetes. This is most likely induced by high- dose steroids. Continue Accu-Chek, sliding scale insulin, hypoglycemic protocol. Physical Exam Vital Signs: Temp Pulse Resp BP Pulse Ox 98.2 F 97 20 153/57 H 93 07/27/19 10:31 07/27/19 10:31 07/27/19 10:31 07/27/19 10:31 07/27/19 10:31 Intake & Output 07/26/19 07/27/19 07/28/19 06:59 06:59 06:59 Intake Total 1200 1740 Balance 1200 1740 Weight 79.5 kg General appearance: PRESENT: no acute distress, obese, well-developed, well- nourished Respiratory exam: PRESENT: clear to auscultation lex. ABSENT: rales, rhonchi, wheezes Cardiovascular exam: PRESENT: RRR. ABSENT: diastolic murmur, rubs, systolic murmur GI/Abdominal exam: PRESENT: normal bowel sounds, soft. ABSENT: distended, guarding, mass, organolmegaly, rebound, tenderness Neurological exam: PRESENT: alert, awake, oriented to person, oriented to place, oriented to time, oriented to situation, CN II-XII grossly intact. ABSENT: motor sensory deficit Results Laboratory Results: WBC 16.9 10^3/uL (4.0-10.5) H 07/27/19 04:45 RBC 4.02 10^6/uL (3.72-5.28) 07/27/19 04:45 Hgb 13.2 g/dL (12.0-15.5) 07/27/19 04:45 Hct 38.3 % (36.0-47.0) 07/27/19 04:45 MCV 95 fl (80-97) 07/27/19 04:45 MCH 32.8 pg (27.0-33.4) 07/27/19 04:45 MCHC 34.4 g/dL (32.0-36.0) 07/27/19 04:45 RDW 13.7 % (11.5-14.0) 07/27/19 04:45 Plt Count 203 10^3/uL (150-450) 07/27/19 04:45 Lymph % (Auto) Not Reportable 07/27/19 04:45 Walsh % (Auto) Not Reportable 07/27/19 04:45 Eos % (Auto) Not Reportable 07/27/19 04:45 Baso % (Auto) Not Reportable 07/27/19 04:45 Absolute Neuts (auto) Not Reportable 07/27/19 04:45 Absolute Lymphs (auto) Not Reportable 07/27/19 04:45 Absolute Monos (auto) Not Reportable 07/27/19 04:45 Absolute Eos (auto) Not Reportable 07/27/19 04:45 Absolute Basos (auto) Not Reportable 07/27/19 04:45 Total Counted 100 07/27/19 04:45 Seg Neutrophils % Not Reportable 07/27/19 04:45 Seg Neuts % (Manual) 75 % (42-78) 07/27/19 04:45 Band Neutrophils % 5 % (3-5) 07/27/19 04:45 Lymphocytes % (Manual) 16 % (13-45) 07/27/19 04:45 Monocytes % (Manual) 4 % (3-13) 07/27/19 04:45 Eosinophils % (Manual) 0 % (0-6) 07/27/19 04:45 Basophils % (Manual) 0 % (0-2) 07/27/19 04:45 Metamyelocytes % 2 % (0-1) H 07/26/19 06:10 Abs Neuts (Manual) 13.5 10^3/uL (1.7-8.2) H 07/27/19 04:45 Abs Lymphs (Manual) 2.7 10^3/uL (0.5-4.7) 07/27/19 04:45 Abs Monocytes (Manual) 0.7 10^3/uL (0.1-1.4) 07/27/19 04:45 Absolute Eos (Manual) 0.0 10^3/uL (0.0-0.6) 07/27/19 04:45 Abs Basophils (Manual) 0.0 10^3/uL (0.0-0.2) 07/27/19 04:45 Smudge Cells PRESENT 07/25/19 08:23 Toxic Vacuolation PRESENT 07/25/19 08:23 Platelet Comment ADEQUATE 07/27/19 04:45 Polychromasia 1+ 07/27/19 04:45 Anisocytosis 1+ 07/27/19 04:45 PT 13.6 SEC (11.4-15.4) 07/20/19 17:17 INR 1.04 07/20/19 17:17 Carbonic Acid 1.04 mmol/L (1.05-1.35) L 07/24/19 06:12 HCO3/H2CO3 Ratio 18:1 07/24/19 06:12 ABG pH 7.37 (7.35-7.45) 07/24/19 06:12 ABG pCO2 34.5 mmHg (35-45) L 07/24/19 06:12 ABG pO2 99.3 mmHg (80-100) 07/24/19 06:12 ABG HCO3 19.6 mmol/L (20-24) L 07/24/19 06:12 ABG Total CO2 20.6 mmol/L (21-25) L 07/24/19 06:12 ABG O2 Saturation 97.4 % (94-98) 07/24/19 06:12 ABG Base Excess -4.8 mmol/L 07/24/19 06:12 VBG pH 7.32 (7.30-7.42) 07/20/19 17:17 VBG pCO2 49.5 mmHg (35-63) 07/20/19 17:17 VBG HCO3 24.7 mmol/L (20-32) 07/20/19 17:17 VBG Base Excess -2.0 mmol/L 07/20/19 17:17 FiO2 3.5L 07/24/19 06:12 Sodium 138.7 mmol/L (137-145) 07/26/19 06:10 Potassium 4.4 mmol/L (3.6-5.0) 07/26/19 06:10 Chloride 102 mmol/L (98-107) 07/26/19 06:10 Carbon Dioxide 29 mmol/L (22-30) 07/26/19 06:10 Anion Gap 8 (5-19) 07/26/19 06:10 BUN 30 mg/dL (7-20) H 07/26/19 06:10 Creatinine 1.17 mg/dL (0.52-1.25) 07/26/19 06:10 Est GFR ( Amer) 54 (>60) L 07/26/19 06:10 Est GFR (MDRD) Non-Af 45 (>60) L 07/26/19 06:10 Glucose 146 mg/dL (75-110) H 07/26/19 06:10 POC Glucose 182 mg/dL (70-110) H 07/27/19 06:20 Lactic Acid (Sepsis) 1.9 mmol/L (0.7-2.1) 07/20/19 17:17 Calcium 9.6 mg/dL (8.4-10.2) 07/26/19 06:10 Magnesium 2.0 mg/dL (1.6-2.3) 07/26/19 06:10 Total Bilirubin 0.4 mg/dL (0.2-1.3) 07/26/19 06:10 Direct Bilirubin 0.1 mg/dL (0.0-0.4) 07/26/19 06:10 Neonat Total Bilirubin Not Reportable 07/26/19 06:10 Neonat Direct Bilirubin Not Reportable 07/26/19 06:10 Neonat Indirect Bili Not Reportable 07/26/19 06:10 AST 23 U/L (14-36) 07/26/19 06:10 ALT 47 U/L (<35) 07/26/19 06:10 Alkaline Phosphatase 90 U/L (38-126) 07/26/19 06:10 Troponin I < 0.012 ng/mL 07/20/19 17:17 NT-Pro-B Natriuret Pep 444 pg/mL (<450) 07/20/19 17:17 Total Protein 6.4 g/dL (6.3-8.2) 07/26/19 06:10 Albumin 3.6 g/dL (3.5-5.0) 07/26/19 06:10 Urine Color YELLOW 07/20/19 20:18 Urine Appearance CLOUDY 07/20/19 20:18 Urine pH 5.0 (5.0-9.0) 07/20/19 20:18 Ur Specific [place] 1.026 07/20/19 20:18 Urine Protein 30 mg/dL (NEGATIVE) H 07/20/19 20:18 Urine Glucose (UA) NEGATIVE mg/dL (NEGATIVE) 07/20/19 20:18 Urine Ketones NEGATIVE mg/dL (NEGATIVE) 07/20/19 20:18 Urine Blood SMALL (NEGATIVE) H 07/20/19 20:18 Urine Nitrite (Reflex) POSITIVE (NEGATIVE) H 07/20/19 20:18 Urine Bilirubin NEGATIVE (NEGATIVE) 07/20/19 20:18 Urine Urobilinogen NEGATIVE mg/dL (<2.0) 07/20/19 20:18 Leukocyte Esterase Rfl LARGE (NEGATIVE) H 07/20/19 20:18 Urine RBC (Auto) 6 /HPF 07/20/19 20:18 U Hyaline Cast (Auto) 15 /LPF 07/20/19 20:18 Urine Bacteria (Auto) TRACE /HPF 07/20/19 20:18 Urine WBC (Reflex) > 182 /HPF 07/20/19 20:18 Squamous Epi Cells Auto 4 /HPF 07/20/19 20:18 Urine Mucus (Auto) RARE /LPF 07/20/19 20:18 Urine Ascorbic Acid NEGATIVE (NEGATIVE) 07/20/19 20:18 07/20/19 17:17 Troponin I < 0.012 NT-Pro-B Natriuret Pep 444 Impressions: Chest X-Ray 07/20/19 16:32 IMPRESSION: NO ACUTE RADIOGRAPHIC FINDING IN THE CHEST. Chest/Abdomen CTA 07/20/19 18:42 IMPRESSION: 1. There is no pulmonary embolus. There is no aortic aneurysm or dissection. 2. Hepatic steatosis. Chest X-Ray 07/21/19 00:00 IMPRESSION: NO ACUTE RADIOGRAPHIC FINDING IN THE CHEST. Stroke Is this a Stroke Patient?: No Acute Heart Failure - Is this a Heart Failure Patient?: No
== END 2019-07-27 11:06 | disposition home or self-care (01) | DRG 189 ==
LOC: ER 16:10 → EH 20:22 → 4S 22:30
PROVIDERS: ADMIT Internal Medicine; ATTEND Internal Medicine
DX: J96.01 Acute respiratory failure with hypoxia (principal); J18.9 Pneumonia, unspecified organism; J44.1 Chronic obstructive pulmonary disease with (acute) exacerbation; N39.0 Urinary tract infection, site not specified; N17.9 Acute kidney failure, unspecified; C56.9 Malignant neoplasm of unspecified ovary; J32.9 Chronic sinusitis, unspecified; I10 Essential (primary) hypertension; E09.65 Drug or chemical induced diabetes mellitus with hyperglycemia; B96.20 Unspecified Escherichia coli [E. coli] as the cause of diseases classified elsewhere; Z87.891 Personal history of nicotine dependence
CPT/HCPCS: 36415; 36600; 71045; 71046; 71275; 80048; 80053; 81001; 82803; 82962; 83605; 83735; 83880; 84484; 85025; 85027; 85610; 87040; 87086; 87088; 87186; 93005; 93010; 94667; 94668; 94799; 96360; 99285; J0360; J0456; J0696; J1644; J1815; J1956; J2543; J2920; J2930; J3490; J7030; J7050; J7060; J7512; J7620

== ENCOUNTER → 2019-08-27 | Outpatient (CLI) | payer MEDICARE ==
--- NOTE | 2019-08-27 12:41 | RADIOLOGY REPORT (SQ) ---
EXAM DESCRIPTION: CHEST 2 VIEWS COMPLETED DATE/TIME: 08/27/2019 12:06 pm REASON FOR STUDY: J18.9 PNEUMONIA, UNSPECIFIED ORGANISM COMPARISON: 07/21/2019 EXAM PARAMETERS: NUMBER OF VIEWS: two views TECHNIQUE: Digital Frontal and Lateral radiographic views of the chest acquired. RADIATION DOSE: NA LIMITATIONS: none FINDINGS: LUNGS AND PLEURA: No opacities, masses or pneumothorax. No pleural effusion. MEDIASTINUM AND HILAR STRUCTURES: No masses or contour abnormalities. HEART AND VASCULAR STRUCTURES: Heart normal size. No evidence for failure. BONES: No acute findings. HARDWARE: None in the chest. OTHER: No other significant finding. IMPRESSION: NO ACUTE RADIOGRAPHIC FINDING IN THE CHEST. TECHNICAL DOCUMENTATION: JOB ID: [id number] [employer]- All Rights Reserved Reading location - IP/workstation name: [email or web address]
== END ==
LOC: RAD 11:46
PROVIDERS: ATTEND Physician Assistant
DX: J18.9 Pneumonia, unspecified organism (principal)
CPT/HCPCS: 71046

== ENCOUNTER → 2020-04-04 | Outpatient (CLI) | payer MEDICARE ==
[~2020-04-04] MED LIST: ALBUTEROL SULFATE 0.083% NEB 2.5 MG/3 ML AMPUL NEB ONE
[2020-04-04 12:33] LABS: ARTERIAL BLOOD BASE EXCESS -2.8 mmol/L; ARTERIAL BLOOD FIO2 ROOM AIR; ARTERIAL BLOOD H2CO3 1.11 mmol/L (1.05-1.35); ARTERIAL BLOOD HCO3 21.7 mmol/L (20-24); ARTERIAL BLOOD O2 SATURATION 95.4 % (94-98); ARTERIAL BLOOD PH 7.39 (7.35-7.45); ARTERIAL BLOOD PO2 77.3 mmHg (80-100); ARTERIAL BLOOD TOTAL CO2 22.8 mmol/L (21-25)
--- NOTE | 2020-04-05 13:59 | Pulmonary Function Test ---
Pulmonary Function Test Date of Procedure:: 04/04/20 INDICATION:: Dyspnea Referring Provider: Dr.Lakshmi Matos [place] Slabs: Thuy Aceves VENDOR MANAGEMENT CONSULTANT - Report Spirometry: Spirometry: pre-FVC: 2.27 L 89% post-FVC: 2.31 L 91% pre-FEV:1 1.36 L 75% post-FEV1: 1.41 L 78% pre-FEV1/FVC %: 60 post-FEV1/FVC%: 61 predicted: 81 [id number]%: 0.53 L 37% [id number]%: 0.59 L 41% Diffusion Capactity: DLCO: 14.8 71% DLCO/VA: 3.06 90% Impression: Mild obstructive ventilatory defect. Mild decrease in diffusion capacity.
== END ==
LOC: RT 12:04
PROVIDERS: ATTEND Specialist
DX: J44.9 Chronic obstructive pulmonary disease, unspecified (principal); R06.09 Other forms of dyspnea
CPT/HCPCS: 82803; 36600; 94729; 94060; A9270